=== PATIENT | male | born 1940 | race Caucasian/White ===

== ENCOUNTER → 2016-09-19 | Outpatient (CLI) | payer MEDICARE, BC | LOC: RESP 12:11 | PROVIDERS: ATTEND Family Medicine | DX: Z01.810 Encounter for preprocedural cardiovascular examination (principal) ==

== ENCOUNTER → 2016-11-04 | Outpatient (CLI) | payer MEDICARE, BC | END | disposition home or self-care (01) | LOC: GMAL 14:56 | PROVIDERS: ATTEND Family Medicine | DX: R97.20 Elevated prostate specific antigen [PSA] (principal) ==

== ENCOUNTER → 2017-05-14 | Outpatient (CLI) | payer MEDICARE | END | disposition home or self-care (01) | LOC: GMAL 14:02 | PROVIDERS: ATTEND Family Medicine | DX: D51.3 Other dietary vitamin B12 deficiency anemia (principal); M10.9 Gout, unspecified; E55.9 Vitamin D deficiency, unspecified ==

== ENCOUNTER → 2017-11-12 | Outpatient (CLI) | payer MEDICARE | LOC: GMAL 11:24 | PROVIDERS: ATTEND Family Medicine | DX: D51.3 Other dietary vitamin B12 deficiency anemia (principal); R53.82 Chronic fatigue, unspecified; E55.9 Vitamin D deficiency, unspecified ==

== ENCOUNTER 2018-01-21 05:38 | Day surgery (SDC) | payer MEDICARE ==
[2018-01-21] MEDS ORDERED: PROPOFOL 200 MG/20 ML VIAL IV ONE (05:39)
[2018-01-21] MEDS ORDERED: LIDOCAINE 1% 10 ML VIAL INJ ONE (05:39)
[2018-01-21] MEDS ORDERED: LACTATED RINGERS 1,000 ML ONE (06:33)
[2018-01-21] MEDS ORDERED: fentaNYL CITRATE INJ 50 MCG/ML AMP ONE (09:05)
--- NOTE | 2018-01-21 10:04 | OP ---
DATE OF PROCEDURE: 01/21/18 PREOPERATIVE DIAGNOSIS: 1. Personal history of colonic polyps. 2. High-risk colon surveillance. POSTOPERATIVE DIAGNOSIS: 1. Colonic polyps. 2. Colonic diverticulosis. 3. Internal hemorrhoids. PROCEDURE: 1. Colonoscopy. SURGEON: Basil Barajas MD ANESTHESIA: Monitored anesthesia care. ESTIMATED BLOOD LOSS: Less than 5 mL. COMPLICATIONS: No immediate complications. PROCEDURE: The patient was placed in the left lateral decubitus position. After monitored anesthesia care was achieved, the adult colonoscope was inserted through the anus and into the rectum under direct visualization. The endoscope was advanced to the cecum without difficulty. The cecum was identified by the ileocecal valve and the appendiceal orifice. Photodocumentation of these locations was performed, the patient's bowel preparation was good. The endoscope was then progressively withdrawn and the total colonic lumen evaluated. Retroflexion was performed in the rectum. The endoscope was then withdrawn and the procedure terminated. The patient tolerated the procedure well with no immediate complications. FINDINGS: 1. Sessile, 5-mm polyp was seen in the transverse colon. The polyp was removed with roselyn snare and retrieved for pathology. 2. Mild to moderate sigmoid colon diverticulosis. There was no evidence of inflammation or bleeding. 3. Grade 3 non-bleeding internal hemorrhoids were noted upon retroflexion in the rectum. IMPRESSION: 1. Transverse colon polyp status post polypectomy. 2. Sigmoid colon diverticulosis. 3. Grade 3 internal hemorrhoids. RECOMMENDATIONS: 1. Repeat colonoscopy in five years for polyp surveillance. 2. Increase dietary fiber or start supplementary daily fiber. 3. Followup with primary care provider as previously scheduled. #[id number] [facility]
[2018-01-21 10:30] VITALS: BP 171/92; TEMP 97; O2SAT 97
== END 2018-01-21 10:30 | disposition home or self-care (01) ==
LOC: AMB 05:38
PROVIDERS: ATTEND Internal Medicine Gastroenterology
DX: Z12.11 Encounter for screening for malignant neoplasm of colon (principal); Z86.010 Personal history of colon polyps; K57.30 Diverticulosis of large intestine without perforation or abscess without bleeding; K64.2 Third degree hemorrhoids; K21.9 Gastro-esophageal reflux disease without esophagitis; I10 Essential (primary) hypertension; E78.5 Hyperlipidemia, unspecified; E66.9 Obesity, unspecified; J45.909 Unspecified asthma, uncomplicated; G47.30 Sleep apnea, unspecified; Z68.39 Body mass index [BMI] 39.0-39.9, adult; Z87.891 Personal history of nicotine dependence; Z79.82 Long term (current) use of aspirin; Z79.899 Other long term (current) drug therapy
CPT/HCPCS: 00812; 45385; 88305; J3010; J3490; J7120

== ENCOUNTER → 2018-05-12 | Outpatient (CLI) | payer MEDICARE | LOC: GMAL 11:48 | PROVIDERS: ATTEND Family Medicine | DX: R97.20 Elevated prostate specific antigen [PSA] (principal); E55.9 Vitamin D deficiency, unspecified ==

== ENCOUNTER → 2018-11-11 | Outpatient (CLI) | payer MEDICARE | LOC: GMAL 11:03 | PROVIDERS: ATTEND Family Medicine | DX: E55.9 Vitamin D deficiency, unspecified (principal) ==

== ENCOUNTER 2018-11-30 05:45 | Day surgery (SDC) | payer MEDICARE ==
[2018-11-30] MEDS ORDERED: TROP 1%/CYCLOPEN 1%/PHENYL 2% DROPS ONE (05:58)
[2018-11-30] MEDS ORDERED: PROPARACAINE 0.5% OPHTH SOL 15 ML BTTL ONE (05:58)
[2018-11-30] MEDS ORDERED: MOXIFLOXACIN HCL (OPHTH) 1 DROP DROPS ONE (05:58)
[2018-11-30] MEDS ORDERED: MIDAZOLAM INJ 2 MG/2 ML VIAL ONE (07:22)
[2018-11-30] MEDS ORDERED: PROPARACAINE 0.5% OPHTH SOL 15 ML BTTL LEFT_EYE ONE (08:00)
[2018-11-30] MEDS ORDERED: DEXAMETHASONE 0.1% OPHTH SOL 1 DROP LEFT_EYE ONE ×2 (08:11→08:37)
[2018-11-30] MEDS ORDERED: LIDOCAINE 1% 2 ML VIAL INJ ONE ×2 (08:11→08:26)
[2018-11-30] MEDS ORDERED: MOXIFLOXACIN HCL (OPHTH) 1 DROP DROPS LEFT_EYE ONE ×2 (08:11→08:35)
[2018-11-30] MEDS ORDERED: BRIMONIDINE 0.2% OPHTH DROPS LEFT_EYE ONE ×2 (08:12→08:37)
[2018-11-30] MEDS ORDERED: TOBRAMYCIN SULF 0.3 % OPHT SOL 1 DROP LEFT_EYE ONE ×2 (08:12→08:37)
== END 2018-11-30 09:20 | disposition home or self-care (01) ==
LOC: AMB 05:45
PROVIDERS: ATTEND Ophthalmology
DX: H25.12 Age-related nuclear cataract, left eye (principal); I10 Essential (primary) hypertension; E66.9 Obesity, unspecified; Z79.899 Other long term (current) drug therapy
CPT/HCPCS: 00142; 66984; J2250

== ENCOUNTER 2018-12-14 06:00 | Day surgery (SDC) | payer MEDICARE ==
[~2018-12-14 06:00] MED LIST: MOXIFLOXACIN HCL (OPHTH) 1 DROP DROPS ONE; PROPARACAINE 0.5% OPHTH SOL 15 ML BTTL ONE; TROP 1%/CYCLOPEN 1%/PHENYL 2% DROPS ONE
[2018-12-14] MEDS ORDERED: MIDAZOLAM INJ 2 MG/2 ML VIAL ONE (11:10)
[2018-12-14] MEDS ORDERED: PROPARACAINE 0.5% OPHTH SOL 15 ML BTTL RIGHT_EYE ONE (11:17)
[2018-12-14] MEDS ORDERED: LIDOCAINE 1% 2 ML VIAL INJ ONE (11:30)
[2018-12-14] MEDS ORDERED: MOXIFLOXACIN HCL (OPHTH) 1 DROP DROPS RIGHT_EYE ONE ×2 (11:30→11:38)
[2018-12-14] MEDS ORDERED: DEXAMETHASONE 0.1% OPHTH SOL 1 DROP RIGHT_EYE ONE ×2 (11:30→11:37)
[2018-12-14] MEDS ORDERED: BRIMONIDINE 0.2% OPHTH DROPS RIGHT_EYE ONE ×2 (11:31→11:37)
[2018-12-14] MEDS ORDERED: TOBRAMYCIN SULF 0.3 % OPHT SOL 1 DROP RIGHT_EYE ONE ×2 (11:31→11:37)
== END 2018-12-14 12:15 | disposition home or self-care (01) ==
LOC: AMB 06:00
PROVIDERS: ATTEND Ophthalmology
DX: H25.11 Age-related nuclear cataract, right eye (principal); I10 Essential (primary) hypertension; Z79.899 Other long term (current) drug therapy
CPT/HCPCS: 00142; 66984; J2250

== ENCOUNTER → 2019-04-19 | Outpatient (CLI) | payer MEDICARE ==
--- NOTE | 2019-04-19 14:14 | RAD ---
EXAM DESCRIPTION: Shoulder,Left 2 or More Views CLINICAL HISTORY: PAIN IN LEFT SHOULDER COMPARISON: 06/17/2016. TECHNIQUE: Four views of the left shoulder. FINDINGS: No displaced fracture or dislocation of the left shoulder. The alignment of the acromioclavicular joint is intact. There is mild anterior subluxation of the left humeral head (as seen on the axillary view). No fracture or dislocation. The humeral head is mildly high riding. Moderate left acromioclavicular and glenohumeral joints osteoarthrosis is present with joint space narrowing, subchondral sclerosis, and bulky marginal osteophyte formation. Lateral subacromial enthesophytes are present. IMPRESSION: 1. No acute osseous abnormality. 2. Mild anterior subluxation of the left humeral head. 3. Moderate left acromioclavicular and glenohumeral joint osteoarthrosis. Electronically signed by: Thiago Berrios DO 04/19/2019 2:12 PM CDT
--- NOTE | 2019-04-19 16:56 | MRI ---
EXAM DESCRIPTION: MRI right shoulder CLINICAL HISTORY: Rotator cuff syndrome. Shoulder pain. COMPARISON: None. TECHNIQUE: Multiplanar, multisequence MR images of the right shoulder FINDINGS: Severe osteoarthritis of the acromioclavicular joint. Joint effusion and prominent marginal osteophytes indenting the supraspinatus. Anterior lateral downsloping of the acromion with subacromial enthesophyte and contiguous inferior lateral acromial spur. Subacromial subdeltoid bursal edema with small volume of fluid in the anterior subdeltoid/subcoracoid bursa. Severe supraspinatus tendinosis with structurally significant high-grade partial articular and interstitial chronic tear. Erosive cystic change and surrounding edema along the posterior horizontal facet. Muscle volume mildly decreased with grade 1 fatty infiltration Contiguous infraspinatus tendinosis with partial articular insertional fraying of the tendon. Muscle volume is moderately decreased with grade 2 fatty infiltration Teres minor tendon intact. Normal muscle volume with grade 1 fatty infiltration. Chronic subscapularis tendinosis with tendon thinning of the upper half of the tendon, chronic tear. Muscle volume moderately decreased with grade 2 fatty infiltration Attritional tendinosis of the long head biceps. Markedly thinned tendon in the bicipital groove, complete/near-complete tear, apparently adherent in the bicipital groove. No fluid in the tendon sheath. Blunting of the labral anchor and superior labrum. Degenerative signal in the circumference of the labrum with blunting. No acute labral detachment No full-thickness chondrosis/chronic osteochondral lesion of the glenohumeral joint. Physiologic joint fluid IMPRESSION: Severe acromioclavicular osteoarthritis, anterior lateral downsloping of the acromion and spurring Structurally significant high-grade partial tear of the supraspinatus tendon with associated focal cystic change and edema in the posterior oblique facet greater tuberosity High-grade chronic degenerative thinning of the subscapularis tendon Complete/near-complete long head biceps tendon tear superimposed on attritional tendinosis with tendon adherent in the bicipital groove Electronically signed by: Brett Gandhi MD 04/19/2019 4:54 PM CDT
== END ==
LOC: RAD 09:23
PROVIDERS: ATTEND Orthopaedic Surgery
DX: S46.111A Strain of muscle, fascia and tendon of long head of biceps, right arm, initial encounter (principal); M75.101 Unspecified rotator cuff tear or rupture of right shoulder, not specified as traumatic; S43.012A Anterior subluxation of left humerus, initial encounter; M19.012 Primary osteoarthritis, left shoulder

== ENCOUNTER → 2019-04-28 | Outpatient (CLI) | payer MEDICARE | LOC: GMAL 10:49 | PROVIDERS: ATTEND Family Medicine | DX: R97.20 Elevated prostate specific antigen [PSA] (principal); M10.9 Gout, unspecified; E78.49 Other hyperlipidemia; I10 Essential (primary) hypertension; E11.9 Type 2 diabetes mellitus without complications ==

== ENCOUNTER → 2019-07-05 | Outpatient (CLI) | payer MEDICARE | LOC: GMAL 11:00 | PROVIDERS: ATTEND Family Medicine | DX: M10.9 Gout, unspecified (principal); I10 Essential (primary) hypertension ==

== ENCOUNTER → 2019-08-05 | Outpatient (CLI) | payer MEDICARE ==
--- NOTE | 2019-08-05 11:53 | RAD ---
EXAM DESCRIPTION: Pelvis CLINICAL HISTORY: PAIN IN LEFT HIP COMPARISON: None. TECHNIQUE: AP pelvis FINDINGS: Minimal acetabular osteophyte formation is observed. Degenerative changes are seen in the pubic symphysis and in the lower lumbar spine. Phleboliths are observed in the pelvis. No fracturing is detected. IMPRESSION: Minimal degenerative changes are observed. Electronically signed by: South Zuleta MD 08/05/2019 11:51 AM [facility]
--- NOTE | 2019-08-05 11:54 | RAD ---
EXAM DESCRIPTION: Knee,Left Complete CLINICAL HISTORY: PAIN IN LEFT KNEE COMPARISON: None. TECHNIQUE: 4 views left FINDINGS: Loss of medial and lateral joint space is observed. Its more pronounced medially. Patellofemoral joint arthritis is seen. A small joint effusion is noted. Calcific atherosclerotic changes observed in the popliteal artery. Some fragmentation of the anterior tibial tubercle is observed. IMPRESSION: Tricompartmental joint arthritis is observed most pronounced in the medial joint compartment. A small joint effusion is evident. Electronically signed by: South Zuleta MD 08/05/2019 11:[address] [facility]
== END ==
LOC: RAD 09:59
PROVIDERS: ATTEND Orthopaedic Surgery
DX: M16.12 Unilateral primary osteoarthritis, left hip (principal); M17.12 Unilateral primary osteoarthritis, left knee; M25.462 Effusion, left knee

== ENCOUNTER → 2019-09-09 | Outpatient (CLI) | payer MEDICARE | LOC: LAB.O 09:28 | PROVIDERS: ATTEND Orthopaedic Surgery | DX: Z01.818 Encounter for other preprocedural examination (principal); D51.8 Other vitamin B12 deficiency anemias; R30.0 Dysuria ==

== ENCOUNTER 2019-10-06 06:10 | Inpatient (IN) | payer MEDICARE ==
[~2019-10-06 06:10] MED LIST changes: +LACTATED RINGERS 1,000 ML ONE; -MOXIFLOXACIN HCL (OPHTH) 1 DROP DROPS ONE; -PROPARACAINE 0.5% OPHTH SOL 15 ML BTTL ONE; +SODIUM CHL 0.9% 100ML MINI-BAG 100 ML IVPB ONE; +SODIUM CHLORIDE 0.9% 100ML 100 ML IVPB ONE; +SODIUM CHLORIDE 0.9% 250ML 250 ML ONE; +TRANEXAMIC ACID 1,000 MG/10 ML VIAL ONE; -TROP 1%/CYCLOPEN 1%/PHENYL 2% DROPS ONE; +VANCOMYCIN HCL INJ 1,000 MG VIAL IVPB ONE; +ceFAZolin SODIUM 1 GM VIAL ONE
[2019-10-06] MEDS ORDERED: BUPIVACAINE LIPOSOME 13.3 MG/ML VIAL INJ ONE ×2 (06:14→07:37)
[2019-10-06] MEDS ORDERED: VANCOMYCIN HCL INJ 1,000 MG VIAL IVPB ONE ×4 (06:14→19:13)
[2019-10-06] MEDS ORDERED: BUPIVACAINE 0.5% 30 ML VIAL INJ ONE ×2 (06:14→07:37)
[2019-10-06] MEDS ORDERED: ceFAZolin SODIUM 1 GM VIAL ONE ×3 (06:14→19:13)
[2019-10-06] MEDS ORDERED: KETAMINE HCL 100 MG/ML VIAL ONE (06:23)
[2019-10-06] MEDS ORDERED: HYDROmorphone HCL INJ 2 MG/ML VIAL ONE (06:23)
[2019-10-06] MEDS ORDERED: SCOPOLAMINE PATCH 1.5MG 1 EA TD ONE (06:30)
[2019-10-06] MEDS: TRANEXAMIC ACID 1,000 MG/10 ML VIAL ONE ×2 (06:34→09:30)
[2019-10-06] MEDS ORDERED: MIDAZOLAM INJ 5 MG/5 ML VIAL ONE (06:36)
[2019-10-06] MEDS ORDERED: ACETAMINOPHEN IV 1000MG 100 ML ONE (06:46)
[2019-10-06] MEDS ORDERED: PROPOFOL 200 MG/20 ML VIAL IV ONE (07:00)
[2019-10-06] MEDS ORDERED: DEXAMETHASONE INJ 10 MG/ML VIAL ONE (07:00)
[2019-10-06] MEDS ORDERED: MAGNESIUM SULFATE INJ 1 GM/2 ML VIAL ONE (07:00)
[2019-10-06] MEDS ORDERED: ePHEDrine SULF 50 MG/ML ONE (07:00)
[2019-10-06] MEDS ORDERED: SODIUM CHLORIDE 0.9% 50 ML VIAL ONE (07:00)
[2019-10-06] MEDS ORDERED: EPINEPHrine HCL AMP 1 MG/ML AMP ONE (07:00)
[2019-10-06] MEDS ORDERED: ceFAZolin SODIUM 1 GM VIAL IRRIG ONE (07:37)
[2019-10-06] MEDS ORDERED: ELECTROLYTE-A 1,000 ML IVS ONE (08:37)
[2019-10-06] MEDS ORDERED: MORPHINE SULFATE INJ 10 MG/ML VIAL IV PRN (09:42)
[2019-10-06] MEDS ORDERED: BENZOCAINE-MENTH LOZ (CEPACOL) 1 EA LOZ MT PRN (09:42)
[2019-10-06] MEDS ORDERED: NALOXONE HCL INJ 0.4 MG/ML VIAL IV PRN (09:42)
[2019-10-06] MEDS ORDERED: ACETAMINOPHEN 325 MG TAB PO PRN (09:42)
[2019-10-06] MEDS ORDERED: TEMAZEPAM 15 MG CAP PO PRN (09:42)
[2019-10-06] MEDS ORDERED: ACETAMINOPHEN 500 MG TAB PO PRN (09:42)
[2019-10-06] MEDS ORDERED: MORPHINE SULFATE INJ 10 MG/ML VIAL IM PRN (09:42)
[2019-10-06] MEDS ORDERED: PROMETHAZINE HCL INJ 12.5 MG in SODIUM CHLORIDE 0.9% 50ML 50 ML IVPB PRN (09:42)
[2019-10-06] MEDS ORDERED: SODIUM CHLORIDE 0.9% (FLUSH) 10 ML SYG IV PRN (09:42)
[2019-10-06] MEDS ORDERED: TRANEXAMIC ACID INJ 1,000 MG in SODIUM CHLORIDE 0.9% 100ML 100 ML IVPB ONE (09:42)
[2019-10-06] MEDS ORDERED: PROMETHAZINE HCL INJ 25 MG in SODIUM CHLORIDE 0.9% 50ML 50 ML IVPB PRN (09:42)
[2019-10-06] MEDS ORDERED: ONDANSETRON INJ 4 MG/2 ML VIAL IV PRN (09:42)
[2019-10-06] MEDS ORDERED: ZOLPIDEM TARTRATE 5 MG TAB PO PRN (09:42)
[2019-10-06] MEDS ORDERED: ALUMINUM & MAGNESIUM HYDROXIDE 30 ML UD PO PRN (09:42)
[2019-10-06] MEDS ORDERED: BISACODYL SUPPOSITORY 10 MG PR PRN (09:42)
[2019-10-06] MEDS ORDERED: MAGNESIUM HYDROXIDE 30 ML UD PO PRN (09:42)
[2019-10-06] MEDS ORDERED: traMADol HCL 50 MG TAB PO PRN (09:42)
[2019-10-06] MEDS ORDERED: DEX 5% W/NACL 0.45% 1000ML 1,000 ML IVS PRN (09:42)
[2019-10-06] MEDS ORDERED: MORPHINE PCA 1 MG/ML 100 ML BAG IVPB SCH (10:00)
[2019-10-06] MEDS ORDERED: GABAPENTIN 100 MG CAP PO PRN (10:49)
[2019-10-06] MEDS: IV SET AND CAP CHANGE INJ INJ SCH (10:58)
[2019-10-06] MEDS ORDERED: diphenhydrAMINE HCL 50 MG/ML VIAL IV PRN (10:59)
[2019-10-06] MEDS: diphenhydrAMINE HCL 50 MG/ML VIAL IV PRN (11:16)
[2019-10-06] MEDS ORDERED: SODIUM CHL 0.9% 50ML MIN-BAG+ 50 ML IVPB ONE ×2 (14:47→19:12)
[2019-10-06] MEDS ORDERED: CELECOXIB 100 MG CAP ONE (14:48)
[2019-10-06] MEDS: ceFAZolin SODIUM 2 GM in SODIUM CHL 0.9% 50ML MIN-BAG+ 50 ML IVPB SCH ×2 (15:31→23:53)
[2019-10-06] MEDS ORDERED: SODIUM CHLORIDE 0.9% 250ML 250 ML ONE ×2 (16:24→19:12)
--- NOTE | 2019-10-06 16:37 | RAD ---
EXAM DESCRIPTION: Fluoroscopy Up to 1Hr CLINICAL HISTORY: L TKA COMPARISON: None. TECHNIQUE: Fluoroscopy time is 6 seconds, one spot film. FINDINGS: Exam demonstrates placement of a left total knee arthroplasty. IMPRESSION: Left total knee arthroplasty. Electronically signed by: South Zuleta MD 10/06/2019 4:36 PM [facility]
--- NOTE | 2019-10-06 16:39 | RAD ---
EXAM DESCRIPTION: Knee,Left 1 or 2 Views CLINICAL HISTORY: TKA COMPARISON: 05 August 2019 TECHNIQUE: 2 views left FINDINGS: Exam demonstrates placement of a left total knee arthroplasty. Positioning is near-anatomic. Postoperative air is observed anteriorly. IMPRESSION: New left total knee arthroplasty. Electronically signed by: South Zuleta MD 10/06/2019 4:38 PM [facility]
[2019-10-06] MEDS: CELECOXIB 100 MG CAP PO SCH (16:41)
[2019-10-06] MEDS: VANCOMYCIN HCL INJ 1,000 MG in SODIUM CHLORIDE 0.9% 250ML 250 ML IVPB SCH (16:42)
[2019-10-06] MEDS ORDERED: ENOXAPARIN SODIUM 30 MG/0.3 ML SYG SUBCU ONE (19:13)
[2019-10-06] MEDS: FAMOTIDINE 20 MG TAB PO SCH (20:01)
[2019-10-06] MEDS: ALLOPURINOL 300 MG TAB PO SCH (20:01)
[2019-10-06] MEDS: DOCUSATE CALCIUM 240 MG CAP PO SCH (20:01)
[2019-10-06] MEDS: VALSARTAN 80 MG TAB PO SCH (20:01)
[2019-10-06] MEDS: CARVEDILOL 12.5 MG TAB PO SCH (20:01)
[2019-10-06] MEDS ORDERED: VALSARTAN 80 MG PO SCH (21:00)
[2019-10-06] MEDS ORDERED: NON-FORMULARY MEDICATION 1 EA MIS (Carvedilol [Carvedilol] 6.25 MG) PO SCH (21:00)
[2019-10-06] MEDS: ENOXAPARIN SODIUM 30 MG/0.3 ML SYG SUBCU SCH (22:27)
[2019-10-07] MEDS: VANCOMYCIN HCL INJ 1,000 MG in SODIUM CHLORIDE 0.9% 250ML 250 ML IVPB SCH (05:51)
[2019-10-07] MEDS: CHLORTHALIDONE 25 MG TAB PO SCH (08:20)
[2019-10-07] MEDS: FAMOTIDINE 20 MG TAB PO SCH ×2 (08:20→20:51)
[2019-10-07] MEDS: TOLTERODINE TARTRATE ER 4 MG CAP PO SCH (08:21)
[2019-10-07] MEDS: CARVEDILOL 12.5 MG TAB PO SCH ×2 (08:22→20:50)
[2019-10-07] MEDS: ALLOPURINOL 300 MG TAB PO SCH ×2 (08:22→20:51)
[2019-10-07] MEDS: CELECOXIB 100 MG CAP PO SCH ×2 (08:23→18:02)
[2019-10-07] MEDS: MAGNESIUM OXIDE 400 MG TAB PO SCH (08:25)
[2019-10-07] MEDS ORDERED: ceFAZolin SODIUM 1 GM VIAL ONE (08:26)
[2019-10-07] MEDS ORDERED: SODIUM CHL 0.9% 50ML MIN-BAG+ 50 ML IVPB ONE (08:26)
[2019-10-07] MEDS ORDERED: TOLTERODINE TARTRATE 2 MG PO SCH (09:00)
[2019-10-07] MEDS: ceFAZolin SODIUM 2 GM in SODIUM CHL 0.9% 50ML MIN-BAG+ 50 ML IVPB SCH (10:28)
[2019-10-07] MEDS: ENOXAPARIN SODIUM 30 MG/0.3 ML SYG SUBCU SCH ×2 (11:45→22:47)
[2019-10-07] MEDS: HYDROcodone 5MG/APAP 325MG 1 EA TAB PO PRN ×2 (18:03→22:41)
[2019-10-07] MEDS: diphenhydrAMINE HCL 50 MG/ML VIAL IV PRN ×2 (18:05)
[2019-10-07] MEDS: VALSARTAN 80 MG TAB PO SCH (20:50)
[2019-10-07] MEDS: DOCUSATE CALCIUM 240 MG CAP PO SCH (20:50)
[2019-10-08] MEDS: diphenhydrAMINE HCL 50 MG/ML VIAL IV PRN (01:23)
[2019-10-08] MEDS: HYDROcodone 5MG/APAP 325MG 1 EA TAB PO PRN ×2 (05:34→21:42)
[2019-10-08] MEDS: CHLORTHALIDONE 25 MG TAB PO SCH (07:49)
[2019-10-08] MEDS: TOLTERODINE TARTRATE ER 4 MG CAP PO SCH (07:49)
[2019-10-08] MEDS: CARVEDILOL 12.5 MG TAB PO SCH ×2 (07:49→20:39)
[2019-10-08] MEDS: FAMOTIDINE 20 MG TAB PO SCH ×2 (07:49→20:39)
[2019-10-08] MEDS: MAGNESIUM OXIDE 400 MG TAB PO SCH (07:50)
[2019-10-08] MEDS: CELECOXIB 100 MG CAP PO SCH ×2 (07:50→17:40)
[2019-10-08] MEDS: CYCLOBENZAPRINE HCL 10 MG TAB PO PRN ×2 (07:50→21:42)
[2019-10-08] MEDS: SODIUM CHLORIDE 0.9% (FLUSH) 10 ML SYG IV SCH ×2 (07:52→20:40)
[2019-10-08] MEDS: ALLOPURINOL 300 MG TAB PO SCH ×2 (07:52→20:39)
--- NOTE | 2019-10-08 08:40 | PN ---
DATE: 10/07/19 SUBJECTIVE: Mr. Sam is doing well and has good pain control right now. OBJECTIVE: Afebrile. Vital signs stable. Dressing is clean, dry and intact. ASSESSMENT: Status post total knee arthroplasty. PLAN: At this point, he will continue with his weightbearing as tolerated status. #[id number] [facility]TDD
[2019-10-08] MEDS: diphenhydrAMINE HCL 25 MG CAP PO PRN ×2 (09:02→20:40)
[2019-10-08] MEDS: ENOXAPARIN SODIUM 30 MG/0.3 ML SYG SUBCU SCH ×2 (11:47→23:38)
--- NOTE | 2019-10-08 16:16 | CONS ---
SUPERVISING PHYSICIAN: Tommie Carlson MD DATE OF CONSULTATION: 10/06/19 CHIEF COMPLAINT: Left knee pain. HISTORY OF PRESENT ILLNESS: This is a 79-year-old male patient who has a history of osteoarthritis with knee pain. He has tried conservative measures and has failed to respond to those treatments. He has requested Dr. Daniel Magallanes for surgical consult for left total knee arthroplasty. He was admitted today for surgery. He had no intraoperative complications and is being admitted to the Floor today after surgical procedure. He is in stable condition. PAST MEDICAL HISTORY: 1. Hypertension. 2. Type 2 diabetes mellitus. 3. Gout. 4. Seasonal allergies. 5. Sleep apnea. 6. Benign prostatic hypertrophy. PAST SURGICAL HISTORY: 1. Right eye surgery. OUTPATIENT MEDICATIONS: Per the EMR and awaiting verification. ALLERGIES: ZOLPIDEM. SOCIAL HISTORY: He lives in [place]. He has a past history of cigarette smoking, but he quit in the 70s. He denies any ETOH or illicit drug use. REVIEW OF SYSTEMS: Negative except as per history of present illness. PHYSICAL EXAMINATION: VITAL SIGNS: Temperature 96.8. Heart rate 54. Blood pressure 171/80. Respiratory rate 95% on Venturi mask. Respiratory rate about 16. GENERAL: This is a 79-year-old male patient who is lying in his hospital bed. He is in no acute distress. HEENT: Normocephalic, atraumatic. Pupils are equal and reactive. Oropharynx is clear. NECK: Supple without mass. RESPIRATORY: Essentially clear to auscultation bilaterally. CHEST: There is equal rise and fall of the chest with inspiration and expiration. CARDIOVASCULAR: Regular rate and rhythm. GASTROINTESTINAL: Abdomen is soft, nondistended, nontender. Bowel sounds are hypoactive. EXTREMITIES: Bilateral pedal pulses are palpable at +2. He has a dressing and Jose bandage to his left knee that is dry and intact. NEUROLOGIC: He is somewhat lethargic, but he is oriented times three. Cranial nerves II-XII are grossly intact as tested. LABORATORY: UDS is negative. Films are per history of present illness. IMPRESSION: 1. Osteoarthritis of the left knee status post left total knee arthroplasty, postoperative day #0, surgery performed by Dr. Daniel Magallanes, orthopedic surgeon. 2. Diet controlled diabetes mellitus, type 2. 3. Hypertension. 4. Gout. 5. Sleep apnea. 6. Benign prostatic hypertrophy. PLAN: We will continue present supportive care. Orthopedic issues will be per Dr. Daniel Magallanes, orthopedic surgeon. He will begin physical therapy for strengthening and conditioning tomorrow. We will encourage good pulmonary hygiene. I will restart his home medications as soon as they have been verified. We will continue to monitor the patient closely and follow as needed. #[id number] [facility]TDD
[2019-10-08] MEDS: VALSARTAN 80 MG TAB PO SCH (20:39)
[2019-10-08] MEDS: DOCUSATE CALCIUM 240 MG CAP PO SCH (20:39)
[2019-10-09] MEDS: HYDROcodone 5MG/APAP 325MG 1 EA TAB PO PRN ×3 (05:44→19:49)
[2019-10-09] MEDS: CYCLOBENZAPRINE HCL 10 MG TAB PO PRN (07:40)
[2019-10-09] MEDS: CELECOXIB 100 MG CAP PO SCH ×2 (08:20→17:11)
[2019-10-09] MEDS: TOLTERODINE TARTRATE ER 4 MG CAP PO SCH (08:20)
[2019-10-09] MEDS: CHLORTHALIDONE 25 MG TAB PO SCH (08:20)
[2019-10-09] MEDS: diphenhydrAMINE HCL 25 MG CAP PO PRN ×2 (08:21→17:11)
[2019-10-09] MEDS: ALLOPURINOL 300 MG TAB PO SCH ×2 (08:21→21:09)
[2019-10-09] MEDS: FAMOTIDINE 20 MG TAB PO SCH ×2 (08:21→21:08)
[2019-10-09] MEDS: CARVEDILOL 12.5 MG TAB PO SCH ×2 (08:22→21:06)
[2019-10-09] MEDS: SODIUM CHLORIDE 0.9% (FLUSH) 10 ML SYG IV SCH ×2 (08:22→21:09)
[2019-10-09] MEDS: MAGNESIUM OXIDE 400 MG TAB PO SCH (08:22)
--- NOTE | 2019-10-09 09:45 | PN ---
SUPERVISING PHYSICIAN: Tommie Carlson MD DATE: 10/08/19 SUBJECTIVE: The patient has no complaints of shortness of breath, nausea or vomiting, no chest pain. He did say he had a little difficult time with his physical therapy. It was difficult for him to get out of bed. He did not have difficulty walking down the hallways but it was from a seated position to a standing position. Otherwise, he feels like he is progressing well. OBJECTIVE: VITAL SIGNS: Temperature 97.7, heart rate 98, blood pressure 127/72, respiratory rate 18, oxygen saturation 94%. RESPIRATORY: Essentially clear to auscultation bilaterally. CARDIAC: Regular rate and rhythm. ABDOMEN: Soft, nondistended, non-tender. Bowel sounds are positive. EXTREMITIES: He has a dressing to his left knee that is dry and intact. NEURO: He is awake, alert, and oriented x3. LABORATORY: Hemoglobin 13, hematocrit 38.6. All other labs and films have been reviewed via the EMR. IMPRESSION: 1. Osteoarthritis of the left knee status post left total knee arthroplasty, postoperative day #1, surgery performed by Dr. Daniel Magallanes, orthopedic surgeon. 2. Diet controlled diabetes mellitus, type 2. 3. Hypertension. 4. Gout. 5. Sleep apnea. 6. Benign prostatic hypertrophy. PLAN: We will continue present supportive care. Orthopedic issues will be per Dr. Daniel Magallanes, orthopedic surgeon. He will continue his physical therapy for strengthening and conditioning. I have encouraged good pulmonary hygiene and we will continue to monitor patient closely and follow as needed. #[id number] [facility]TDD
--- NOTE | 2019-10-09 10:10 | PN ---
SUPERVISING PHYSICIAN: Tommie Carlson MD DATE: 10/08/19 SUBJECTIVE: The patient is sitting up on the side of his bed eating. He has no complaints of shortness of breath, chest pain, nausea or vomiting. He continues to have some issues with getting up out of bed and once he gets up to an upright position, he does well, but it is going from a sitting position to a standing position that he feels somewhat weak. Physical therapy recommended he have a few more days in the hospital. OBJECTIVE: VITAL SIGNS: Temperature 97.4. Heart rate 89. Blood pressure 134/76. Respiratory rate 18. O2 saturation 94% on room air. RESPIRATORY: Essentially clear to auscultation bilaterally. CARDIAC: Regular rate and rhythm. GASTROINTESTINAL: Abdomen is soft, nondistended, nontender. Bowel sounds are positive. EXTREMITIES: His left knee has a dressing that is dry and intact. His bilateral pedal pulses are palpable at +2. NEUROLOGIC: Awake, alert and oriented times three. LABORATORY: There are no labs or films to report at this time. ASSESSMENT: 1. Osteoarthritis of the left knee status post left total knee arthroplasty, surgery performed by Dr. Daniel Magallanes, orthopedic surgeon, postoperative day #2. 2. Diet controlled diabetes mellitus, type 2. 3. Hypertension. 4. Gout. 5. Sleep apnea. 6. Benign prostatic hypertrophy. PLAN: We will continue present supportive care. Orthopedic issues will be per Dr. Daniel Magallanes, orthopedic surgeon. Physical therapy will continue for strengthening and conditioning. We hope to discharge tomorrow or the next day if he continues to improve with his physical therapy. We encouraged good pulmonary hygiene. We will continue to monitor the patient closely and follow as needed. #[id number] [facility]
[2019-10-09] MEDS: ENOXAPARIN SODIUM 30 MG/0.3 ML SYG SUBCU SCH ×2 (11:00→22:35)
[2019-10-09] MEDS ORDERED: SULFA/TRIMETH 800/160 (DS) TAB 1 EA TAB PO SCH (13:00)
[2019-10-09] MEDS: IV SET AND CAP CHANGE INJ INJ SCH (18:00)
--- NOTE | 2019-10-09 20:16 | PN ---
SUPERVISING PHYSICIAN: Tommie Carlson MD DATE: 10/09/19 SUBJECTIVE: Early this morning I got a report that the patient was having some hypertension issues and was complaining he could not pee. He would get up to the beside commode but only pee small amounts. We went ahead and placed a Gaming catheter, he had well over 1300 cc or more at time of placement. Discussed with the patient that Gaming would remain in place until we can get a urology consultation or if he is able to bladder train and concerns that we might be able to remove it, we would do so but he has had problems in the past with benign prostatic hypertrophy. He does remain afebrile. Urine on exam was clean. OBJECTIVE: VITAL SIGNS: Temperature 97.6. Heart rate 69. Blood pressure 141/69. Respiratory rate 18. O2 saturation 95% on 2 liter nasal cannula. I&O: negative balance of 1675 with Gaming amount at 1325. He has had one bowel movement. Weight 124 kg. GENERAL: Patient is resting comfortably, appears to be in no distress. He is alert and oriented x3. CHEST: Clear to auscultation. CARDIAC: Regular rate and rhythm. GASTROINTESTINAL: Abdomen is soft, nondistended. Bowel sounds are positive. EXTREMITIES: His left knee has a dressing that is clean and dry with pulses distally,, capillary refill brisk. NEUROLOGIC: Intact with no deficits noted. He is alert and oriented x3. LABORATORY: Urinalysis after Gaming catheter placement, 15 of ketones, just tract intact blood. Otherwise, within normal limits.. ASSESSMENT: 1. Osteoarthritis of the left knee status post left total knee arthroplasty, surgery performed by Dr. Daniel Magallanes, orthopedic surgeon, postoperative day #3. 2. Benign prostatic hypertrophy with postoperative urinary retention requiring Gaming placement. 3. Diet controlled diabetes mellitus, type 2. 4. Hypertension. 5. Gout. 6. Sleep apnea.. PLAN: We will continue to follow patient as he progresses through his physical therapy and reconditioning efforts. We will leave his Gaming in place. I anticipate he will probably discharge on Friday. Will probably need to discuss with urology if we need to go ahead and try to do another Gaming removal to see if he can void without gong home with a Gaming. Until then, we will continue to monitor and treat as needed. [facility][id number]
[2019-10-09] MEDS ORDERED: BISACODYL SUPPOSITORY 10 MG PR ONE (21:00)
[2019-10-09] MEDS ORDERED: MAGNESIUM HYDROXIDE 30 ML UD PO ONE (21:00)
[2019-10-09] MEDS: SULFA/TRIMETH 800/160 (DS) TAB 1 EA TAB PO SCH (21:06)
[2019-10-09] MEDS: VALSARTAN 80 MG TAB PO SCH (21:07)
[2019-10-09] MEDS: DOCUSATE CALCIUM 240 MG CAP PO SCH (21:09)
[2019-10-10] MEDS: CELECOXIB 100 MG CAP PO SCH ×2 (09:32→18:06)
[2019-10-10] MEDS: CHLORTHALIDONE 25 MG TAB PO SCH (09:32)
[2019-10-10] MEDS: SULFA/TRIMETH 800/160 (DS) TAB 1 EA TAB PO SCH ×2 (09:33→20:18)
[2019-10-10] MEDS: ALLOPURINOL 300 MG TAB PO SCH ×2 (09:33→20:18)
[2019-10-10] MEDS: CARVEDILOL 12.5 MG TAB PO SCH ×2 (09:33→20:18)
[2019-10-10] MEDS: FAMOTIDINE 20 MG TAB PO SCH ×2 (09:33→20:18)
[2019-10-10] MEDS: MAGNESIUM OXIDE 400 MG TAB PO SCH (09:34)
[2019-10-10] MEDS: SODIUM CHLORIDE 0.9% (FLUSH) 10 ML SYG IV SCH ×2 (09:34→20:18)
[2019-10-10] MEDS: HYDROcodone 5MG/APAP 325MG 1 EA TAB PO PRN ×2 (11:55→16:51)
[2019-10-10] MEDS: TOLTERODINE TARTRATE ER 4 MG CAP PO SCH (13:39)
[2019-10-10] MEDS: ENOXAPARIN SODIUM 30 MG/0.3 ML SYG SUBCU SCH ×2 (13:41→22:07)
--- NOTE | 2019-10-10 18:42 | PN ---
SUPERVISING PHYSICIAN: Tommie Carlson MD DATE: 10/10/19 SUBJECTIVE: The patient continues to do well. He tolerated the Gaming for the urinary retention that was noted on Friday morning. I did discuss with him that we will work to do some bladder today with anticipation of removing the Gaming tomorrow and do a pre and post void ultrasound study to insure that he does not continue to have urinary retention requiring Gaming placement. He has had no further complaints. His pain is under control. OBJECTIVE: VITAL SIGNS: Temperature 98.2. Heart rate 78. Blood pressure 130/69. Respiratory rate 18. O2 saturation 97% on 2 liter nasal cannula. GENERAL: Patient is resting comfortably, appears to be in no distress. He is alert and oriented x3. CHEST: Clear to auscultation. CARDIAC: Regular rate and rhythm. GASTROINTESTINAL: Abdomen is soft, nondistended. Bowel sounds are positive. EXTREMITIES: His left knee has a dressing that is clean and dry with pulses distally,, capillary refill brisk. NEUROLOGIC: Intact with no deficits noted. He is alert and oriented x3. LABORATORY: No additional laboratory studies today. ASSESSMENT: 1. Osteoarthritis of the left knee status post left total knee arthroplasty, surgery performed by Dr. Daniel Magallanes, orthopedic surgeon, postoperative day #4. 2. Benign prostatic hypertrophy with postoperative urinary retention requiring Gaming placement. 3. Diet controlled diabetes mellitus, type 2. 4. Hypertension. 5. Gout. 6. Sleep apnea.. PLAN: We will continue with physical therapy efforts and monitor patient closely. Discussed with him that we need to train his bladder today in anticipation of discontinuing the Gaming in the morning. I will order a pre and post void to be sure that he is not retaining. He would certainly benefit from a consultation with either Dr. Shrestha or Dr. Melo and I believe he has seen Dr. Shrestha in the past. It is anticipated he will discharge on Friday morning to continue with physical therapy efforts. Until then, we will continue to monitor and treat as needed. [id number]
[2019-10-10] MEDS: DOCUSATE CALCIUM 240 MG CAP PO SCH (20:18)
[2019-10-10] MEDS: VALSARTAN 80 MG TAB PO SCH (20:18)
[2019-10-11] MEDS: CELECOXIB 100 MG CAP PO SCH (07:30)
[2019-10-11] MEDS: FAMOTIDINE 20 MG TAB PO SCH (08:04)
[2019-10-11] MEDS: ALLOPURINOL 300 MG TAB PO SCH (08:04)
[2019-10-11] MEDS: HYDROcodone 5MG/APAP 325MG 1 EA TAB PO PRN (08:04)
[2019-10-11] MEDS: CHLORTHALIDONE 25 MG TAB PO SCH (08:04)
[2019-10-11] MEDS: MAGNESIUM OXIDE 400 MG TAB PO SCH (08:04)
[2019-10-11] MEDS: SULFA/TRIMETH 800/160 (DS) TAB 1 EA TAB PO SCH (08:04)
[2019-10-11] MEDS: CARVEDILOL 12.5 MG TAB PO SCH (08:05)
[2019-10-11] MEDS: SODIUM CHLORIDE 0.9% (FLUSH) 10 ML SYG IV SCH (08:12)
[2019-10-11] MEDS: diphenhydrAMINE HCL 25 MG CAP PO PRN (09:13)
[2019-10-11 11:14] VITALS: O2SAT 95
[2019-10-11] MEDS: ENOXAPARIN SODIUM 30 MG/0.3 ML SYG SUBCU SCH (11:34)
--- NOTE | 2019-10-11 13:20 | PN ---
DATE: 10/09/19 SUBJECTIVE: Mr. Sam is improving and his pain is well controlled today. OBJECTIVE: Afebrile. Vital signs stable. The wound is clean. There are no signs or symptoms of infection. ASSESSMENT: Status post total knee arthroplasty. PLAN: The plan at this point is to continue with physical therapy. [id number] [facility]
--- NOTE | 2019-10-11 13:21 | PN ---
DATE: 10/11/19 SUBJECTIVE: Mr. Sam is much improved and has been out of bed without assistance. OBJECTIVE: Afebrile. Vital signs stable. The wound is clean. There are no signs or symptoms of infection. ASSESSMENT: Status post total knee arthroplasty. PLAN: The plan at this point is to continue with therapy. He will be discharged to [facility] today. #[id number] [facility]TDD
[2019-10-11 15:03] VITALS: BP 142/84; TEMP 98.7
--- NOTE | 2019-10-12 08:21 | DS ---
SUPERVISING PHYSICIAN: Mayi Willoughby MD ADMISSION DIAGNOSIS: 1. Left knee osteoarthritis status post left total knee arthroplasty. 2. Diabetes mellitus, type 2. 3. Hypertension. 4. Gout. 5. Sleep apnea. 6. Benign prostatic hypertrophy. DISCHARGE DIAGNOSIS: 1. Left knee osteoarthritis status post left total knee arthroplasty. 2. Diabetes mellitus, type 2. 3. Hypertension. 4. Gout. 5. Sleep apnea. 6. Benign prostatic hypertrophy. 7. Urinary retention. HOSPITAL COURSE: This is a 79-year-old male patient who had chronic left knee osteoarthritis that failed conservative measures and therefore underwent an elective left total knee arthroplasty performed by Dr. Magallanes. There were no intraoperative complications. The patient came to the Medical/Surgical Floor the day of surgery in stable condition. The patient participated in physical therapy throughout his stay in addition to the fact that he had pain control. He was also on prophylactic anticoagulation with Lovenox 30 mg subcutaneously b.i.d. The patient did have some urinary retention which started on 10/09/19. The patient had a Gaming catheter placed. Urinalysis was not indicative of urinary tract infection. However, by the day of discharge, the patient had his Gaming catheter discontinued and he was able to void. Pain was controlled and he chose to go to [facility] for further rehabilitation. Therefore, he was discharged today in stable condition. Physical therapy will be continued at [facility]. Medications will include his anticoagulation with Xarelto 10 mg daily for 7 more days to complete a 12-day anticoagulation regimen. He will followup with Dr. Magallanes in 1 to 2 weeks. [facility][id number] [facility]
--- NOTE | 2019-10-14 08:34 | OP ---
DATE OF PROCEDURE: 10/06/19 PREOPERATIVE DIAGNOSIS: 1. Osteoarthritis of the left knee. POSTOPERATIVE DIAGNOSIS: 1. Osteoarthritis of the left knee. PROCEDURE: 1. Left total knee arthroplasty. SURGEON: Daniel Magallanes MD. CAMP DINING ROOM ATTENDANT: Navi Youssef CST, SA-C. ANESTHESIA: General anesthesia. COMPLICATIONS: None. FINDINGS: Severe arthritis of the knee. INDICATION: Mr. Sam has a long history of severe knee pain. Unfortunately, he has been unable to get relief with any conservative measures. Because of his ongoing pain and dysfunction, he has requested operative intervention. After discussing the risks, benefits and alternatives to operative intervention, informed consent was obtained for that. PROCEDURE: The patient was brought to the Operating Room and placed in supine position. General anesthesia was induced and the patient's leg was sterilely prepped and draped. Following prepping and draping, the distal femur was exposed and using an intramedullary guide, the distal femoral cut was made. The appropriate sized cutting block was measured, pinned into place, and the anterior, posterior, and chamfer cuts were made. The ACL was transected and the tibia was subluxed. Both the medial and lateral menisci were removed. An intramedullary guide was used to make the proximal tibial cut. The appropriate sized base plate was placed and a trial polyethylene was placed. The trial femur was placed, the knee was reduced, and the knee was taken through a range of motion. The knee was stable in anterior, posterior, varus and valgus stress. The patella tracked anatomically without evidence of subluxation or dislocation. After trialing, the trial components were removed and the bony surfaces were thoroughly irrigated with saline. Following irrigation, the surfaces were dried and the final components were cemented into place. The excess cement was removed and the remaining cement was allowed to cure. The knee was again taken through a range of motion to confirm stability. The wound was then irrigated with saline and closure was performed using PDS to approximate the arthrotomy followed by closure of the subcutaneous tissues with a combination of running and interrupted Monocryl sutures. Sterile dressing was placed. The patient was awoken from anesthesia and taken to Recovery. COMPONENTS: Erick Triathlon knee, size 5 femur, size 5 tibia, 9 mm insert. POSTOPERATIVE PLAN: The patient will be weight-bearing as tolerated on postoperative day 1. #[id number] [facility]
== END 2019-10-11 15:40 | DRG 470 ==
LOC: AMB 06:10 → MS 10:40
PROVIDERS: ADMIT Orthopaedic Surgery; ATTEND Orthopaedic Surgery
PROC: 3E0T3BZ Introduction of Anesthetic Agent into Peripheral Nerves and Plexi, Percutaneous Approach (ICD-10-PCS; 2019-10-06)
PROC: 3E0T33Z Introduction of Anti-inflammatory into Peripheral Nerves and Plexi, Percutaneous Approach (ICD-10-PCS; 2019-10-06)
PROC: 0SRD0J9 Replacement of Left Knee Joint with Synthetic Substitute, Cemented, Open Approach (ICD-10-PCS; principal; 2019-10-06 07:00)
DX: M17.12 Unilateral primary osteoarthritis, left knee (principal); R33.9 Retention of urine, unspecified; I10 Essential (primary) hypertension; E11.9 Type 2 diabetes mellitus without complications; M10.9 Gout, unspecified; J30.2 Other seasonal allergic rhinitis; G47.30 Sleep apnea, unspecified; N40.0 Benign prostatic hyperplasia without lower urinary tract symptoms; J45.909 Unspecified asthma, uncomplicated; Z66 Do not resuscitate; Z88.8 Allergy status to other drugs, medicaments and biological substances; Z87.891 Personal history of nicotine dependence; Z79.52 Long term (current) use of systemic steroids; Z79.891 Long term (current) use of opiate analgesic; Z79.899 Other long term (current) drug therapy

== ENCOUNTER → 2019-12-29 | Outpatient (CLI) | payer MEDICARE | LOC: GMAL 10:57 | PROVIDERS: ATTEND Family Medicine | DX: D51.3 Other dietary vitamin B12 deficiency anemia (principal); M10.9 Gout, unspecified; E55.9 Vitamin D deficiency, unspecified; I10 Essential (primary) hypertension; E78.49 Other hyperlipidemia ==

== ENCOUNTER → 2020-01-06 | Outpatient (CLI) | payer MEDICARE | LOC: GMAL 11:54 | PROVIDERS: ATTEND Family Medicine | DX: R97.20 Elevated prostate specific antigen [PSA] (principal) ==

== ENCOUNTER 2020-02-07 05:34 | Day surgery (SDC) | payer MEDICARE ==
[2020-02-07] MEDS ORDERED: MOXIFLOXACIN HCL (OPHTH) 1 DROP DROPS ONE ×2 (06:32→07:14)
[2020-02-07] MEDS ORDERED: PROPARACAINE 0.5% OPHTH SOL 15 ML BTTL ONE ×2 (06:33→07:14)
[2020-02-07] MEDS ORDERED: TROP1%/CYCLOPEN 1%/PHENYL 2.5% DROPS ONE ×2 (06:33→07:15)
[2020-02-07] MEDS ORDERED: PROPARACAINE 0.5% OPHTH SOL 15 ML BTTL LEFT_EYE ONE (07:57)
== END 2020-02-07 08:10 | disposition home or self-care (01) ==
LOC: AMB 05:34
PROVIDERS: ATTEND Ophthalmology
DX: H26.492 Other secondary cataract, left eye (principal)

== ENCOUNTER 2020-02-21 05:37 | Day surgery (SDC) | payer MEDICARE ==
[2020-02-21] MEDS ORDERED: PROPARACAINE 0.5% OPHTH SOL 15 ML BTTL ONE (06:30)
[2020-02-21] MEDS ORDERED: MOXIFLOXACIN HCL (OPHTH) 1 DROP DROPS ONE (06:30)
[2020-02-21] MEDS ORDERED: TROP1%/CYCLOPEN 1%/PHENYL 2.5% DROPS ONE (06:30)
== END 2020-02-21 08:23 | disposition home or self-care (01) ==
LOC: AMB 05:37
PROVIDERS: ATTEND Ophthalmology
DX: H26.40 Unspecified secondary cataract (principal)

== ENCOUNTER → 2020-04-25 | Outpatient (CLI) | payer MEDICARE | LOC: GMAL 14:57 | PROVIDERS: ATTEND Family Medicine | DX: M10.9 Gout, unspecified (principal) ==

== ENCOUNTER → 2020-04-27 | Outpatient (CLI) | payer MEDICARE ==
--- NOTE | 2020-04-28 08:00 | MRI ---
Study: MRI of the Left Ankle. Indication: PAIN Technique: Multiplanar, multi sequence MRI of the left ankle was obtained without intravenous contrast. Comparison: None Findings: Extensive subcutaneous edema about the ankle. Prominent plantar calcaneal heel spur without acute rupture of the plantar fascia. Low-grade tendinosis critical zone Achilles tendon without tear. No acute fracture or talar coalition. Mild pes planus. Scattered mild to moderate osteoarthritis throughout the midfoot and at the subtalar joint. Remote avulsion injury anterior calcaneal process. Small tibiotalar and talonavicular joint effusions. 2 cm benign lipoma central talus. Valgus angulation of the hindfoot. Patchy grade 4 chondrosis, cortical remodeling, and subchondral marrow change lateral margin of the talar dome with less pronounced grade 3 and mild grade 4 changes of the superolateral margins of the tibial plafond. Prior high-grade tearing anterior talofibular ligament as well as prior sprains of the anterior talofibular ligament, calcaneofibular ligament, deep/superficial deltoid ligament, and spring ligament. Narrowing of the calcaneofibular distance which can predispose to lateral hindfoot impingement. Tenosynovitis and tendinosis of the peroneal tendons noted at this site with focal longitudinal split tearing of the peroneus brevis tendon. No rupture. Mild varus angulation of the midfoot. Tenosynovitis medial tendons without tear. Anterior tendons intact. Impression: Prior high-grade tear anterior talofibular ligament as well as multiple prior medial and lateral ankle ligament sprains. 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 Valgus angulation of the hindfoot with findings which can be seen with lateral hindfoot impingement. Tendinosis of the peroneal tendons with mild longitudinal fissuring of the peroneus brevis tendon. No rupture. Multifocal grade 3-4 chondrosis of the central and lateral margins of the tibiotalar joint. Additional findings as above. Electronically signed by: Gordon Lewis MD 04/28/2020 7:59 AM CDT
== END ==
LOC: MRI 11:08
PROVIDERS: ATTEND Family Medicine
DX: S93.492A Sprain of other ligament of left ankle, initial encounter (principal); M76.72 Peroneal tendinitis, left leg; M19.072 Primary osteoarthritis, left ankle and foot; D17.79 Benign lipomatous neoplasm of other sites; M21.072 Valgus deformity, not elsewhere classified, left ankle; M94.272 Chondromalacia, left ankle and joints of left foot; M77.32 Calcaneal spur, left foot; M25.472 Effusion, left ankle

== ENCOUNTER 2020-07-07 14:18 | Emergency (ER) | payer MEDICARE ==
--- NOTE | 2020-07-07 17:58 | ED.PDOC ---
History of Present Illness - General Chief Complaint: Problem Stated Complaint: anuria Time Seen by Provider: 07/07/20 15:51 Additional Information: Patient is an 80-year-old male who presents to the ED with chief complaint of urinary retention. Patient has a history of prostatic hypertrophy and is on Flomax. He indicates that for the past 1 to 2 days his flow has greatly reduced and he feels like he needs to void but is unable to. He has not voided since midnight last night according to patient. Patient denies abdominal pain, shortness of breath, chest pain, fever, chills, nausea, vomiting. Patient is otherwise asymptomatic. Patient has had an episode in the past where he is required urinary catheterization. Patient has no other complaints today. - History of Present Illness Allergies/Adverse Reactions: Allergies Zolpidem [From Ambien] Adverse Reaction (Verified 07/07/20 15:48) Home Medications: Ambulatory Orders Allopurinol [Zyloprim] 300 mg PO BID 01/20/18 Carvedilol 6.25 mg PO BID 01/20/18 Chlorthalidone 25 mg PO DAILY 01/20/18 Fluticasone Furoate [Flonase Sensimist] 27.5 mcg NA PRN PRN 10/01/19 Gabapentin [Neurontin] 100 mg PO PRN PRN 10/01/19 Atorvastatin Calcium [Lipitor] 10 mg PO DAILY 02/07/20 Meloxicam [Mobic] 15 mg PO DAILY 02/07/20 Review of Systems - Review of Systems Constitutional: States: no symptoms reported. Denies: chills, fever Respiratory: States: no symptoms reported. Denies: cough, short of breath Cardiology: States: no symptoms reported. Denies: chest pain, palpitations Gastrointestinal/Abdominal: States: no symptoms reported. Denies: abdominal pain, nausea, vomiting Genitourinary: States: see HPI. Denies: dysuria, pain All other Systems: Reviewed and Negative Past Medical History (General) - Patient Medical History Hx Seizures: No Hx Stroke: No Hx Dementia: No Hx Asthma: No Hx of COPD: No Hx Cardiac Disorders: No Hx Congestive Heart Failure: No Hx Pacemaker: No Hx Hypertension: Yes Hx Thyroid Disease: No Hx Diabetes: No Hx Gastroesophageal Reflux: No Hx Renal Disease: No Hx of HIV: No Hx MRSA: Yes MRSA Source:: nose swab Surgical History: no surgical history - Vaccination History Hx Influenza Vaccination: Yes - Social History Hx Tobacco Use: Yes Hx Alcohol Use: No Hx Substance Use: No Hx Physical Abuse: No Hx Emotional Abuse: No Family Medical History - Family History Mother Family History: Unknown Physical Exam - Physical Exam General Appearance: Alert, Comfortable, No apparent distress, Well Developed, Well Nourished Cardiovascular/Respiratory: regular rate, rhythm, no M/R/G, normal peripheral pulses, no JVD, normal breath sounds, no respiratory distress Gastrointestinal/Abdominal: normal bowel sounds, non tender, soft, other - Positive bladder fullness with mild suprapubic tenderness to palpation. 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 His UA is negative for infection and his symptoms are almost certainly due to BPH. Will discharge patient home with a leg bag and he will continue with his Flomax and follow-up with his urologist as discussed. Vital signs stable, patient is NAD and looks clinically well and I believe is safe for discharge with outpatient follow-up. Follow-up instructions, discharge instructions and return to ED precautions discussed with patient. Patient voices understanding and willingness to comply with instructions. All laboratory results have been discussed with the patient, and all questions answered. Patient is happy with plan. - EKG/XRAY/CT CT Ordered: No Departure - Departure Clinical Impression: Retention of urine Time of Disposition: 18:02 Disposition: Discharge to Home or Self Care Departure Forms: ED Discharge - Pt. Copy, Patient Portal Self Enrollment Referrals: [place] III, MD [Primary Care Provider] - 1-5 Days Home Medications: Ambulatory Orders Allopurinol [Zyloprim] 300 mg PO BID 01/20/18 Carvedilol 6.25 mg PO BID 01/20/18 Chlorthalidone 25 mg PO DAILY 01/20/18 Fluticasone Furoate [Flonase Sensimist] 27.5 mcg NA PRN PRN 10/01/19 Gabapentin [Neurontin] 100 mg PO PRN PRN 10/01/19 Atorvastatin Calcium [Lipitor] 10 mg PO DAILY 02/07/20 Meloxicam [Mobic] 15 mg PO DAILY 02/07/20 Comments: Continue with your Flomax as previously prescribed. Call your urologist on Friday to make an appointment for follow-up later on in the week. Return to the ED if your urinary catheter becomes obstructed and fails to drain.
[2020-07-07 18:23] VITALS: BP 136/67; TEMP 97.7; O2SAT 94
== END 2020-07-07 18:31 | disposition home or self-care (01) ==
LOC: ER 14:18
DX: N40.1 Benign prostatic hyperplasia with lower urinary tract symptoms (principal); R33.8 Other retention of urine; I10 Essential (primary) hypertension; Z87.891 Personal history of nicotine dependence; Z79.899 Other long term (current) drug therapy; Z88.8 Allergy status to other drugs, medicaments and biological substances

== ENCOUNTER 2020-07-10 09:51 | Emergency (ER) | payer MEDICARE ==
--- NOTE | 2020-07-10 11:28 | ED.PDOC ---
History of Present Illness - General Time Seen by Provider: 07/10/20 10:41 Source: patient, RN notes reviewed, Vital Signs reviewed Exam Limitations: no limitations - History of Present Illness Initial Comments: Patient is an 80-year-old white male who presents with complaints of urethral pain, penile discharge and foul-smelling urine. Patient had a Gaming catheter placed approximately 4 days ago and noted the urethral discharge and foul- smelling urine last night. Patient denies any fever or chills. The urethral pain is burning in nature. It is moderate in intensity. Nothing makes it worse or better. It is nonradiating. Timing/Duration: getting worse, other - 3 to 4 days ago. Quality: moderate, burning Onset Location: urethral Radiation: none Activites at Onset: none Prior abdominal problems: none Sexual intercourse history: not active Improving Factors: nothing Worsening Factors: nothing Associated Symptoms: other - Urethral foul-smelling urine. Urethral discharge. Allergies/Adverse Reactions: Allergies Zolpidem [From Ambien] Adverse Reaction (Verified 07/07/20 15:48) Home Medications: Ambulatory Orders Allopurinol [Zyloprim] 300 mg PO BID 01/20/18 Carvedilol 6.25 mg PO BID 01/20/18 Chlorthalidone 25 mg PO DAILY 01/20/18 Fluticasone Furoate [Flonase Sensimist] 27.5 mcg NA PRN PRN 10/01/19 Gabapentin [Neurontin] 100 mg PO PRN PRN 10/01/19 Atorvastatin Calcium [Lipitor] 10 mg PO DAILY 02/07/20 Meloxicam [Mobic] 15 mg PO DAILY 02/07/20 Cefdinir 300 mg PO BID #14 capsule 07/10/20 Review of Systems - Review of Systems Constitutional: States: no symptoms reported, see HPI. Denies: chills, fever, malaise, weakness EENTM: States: no symptoms reported. Denies: eye pain, blurred vision, double vision Respiratory: States: no symptoms reported. Denies: cough, short of breath, stridor, wheezing Cardiology: States: no symptoms reported. Denies: chest pain, palpitations, syncope Gastrointestinal/Abdominal: States: no symptoms reported. Denies: abdominal pain, nausea, vomiting Genitourinary: States: see HPI, discharge, dysuria, pain - Urethral. Denies: frequency, hematuria Musculoskeletal: States: no symptoms reported. Denies: back pain, joint pain, neck pain Skin: States: no symptoms reported. Denies: change in color, rash Neurological: States: no symptoms reported. Denies: tingling, tremors, weakness Endocrine: States: no symptoms reported. Denies: increased hunger, increased thirst, increased urine Hematologic/Lymphatic: States: no symptoms reported. Denies: blood clots, easy bleeding All other Systems: Reviewed and Negative, No Change from Baseline Past Medical History (General) - Patient Medical History Hx Seizures: No Hx Stroke: No Hx Dementia: No Hx Asthma: No Hx of COPD: No Hx Cardiac Disorders: No Hx Congestive Heart Failure: No Hx Pacemaker: No Hx Hypertension: Yes Hx Thyroid Disease: No Hx Diabetes: No Hx Gastroesophageal Reflux: Yes Hx Renal Disease: No Hx Cancer: Yes - skin Hx of HIV: No Hx MRSA: Yes MRSA Source:: nose swab Surgical History: other - Vaccination History Hx Tetanus, Diphtheria Vaccination: Yes Hx Influenza Vaccination: Yes Hx Pneumococcal Vaccination: No - Social History Hx Tobacco Use: No Hx Alcohol Use: No Hx Substance Use: No Hx Physical Abuse: No Hx Emotional Abuse: No - Activities of Daily Living Hospice Agency (if applicable):: None - Female History Patient is a Female of Child Bearing Age (10 -59 yrs old): No Family Medical History - Family History Mother Family History: Unknown Physical Exam - Physical Exam General Appearance: Alert, Anxious, Obvious distress, Obese, Well Developed, Well Groomed, Well Hydrated, Well Nourished Eyes, Ears, Nose, Throat Exam: PERRL/EOMI, normal ENT inspection, pharynx normal Neck: non-tender, full range of motion, supple Cardiovascular/Respiratory: regular rate, rhythm, no M/R/G, normal peripheral pulses, no JVD, normal breath sounds, no respiratory distress Gastrointestinal/Abdominal: normal bowel sounds, non tender, soft, no organomegaly, no pulsatile mass Rectal Exam: deferred Male Genital Exam: urethral discharge, other - Gaming catheter in place. 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 07/10/20 11:46 Gaming catheter replaced without difficulty. Good urine flow with no Gaming in place. Urinalysis shows infection. Unlikely to be sexually transmitted. Plan on discharge home with a prescription for antibiotics. I discussed this plan of care with the patient and he voices understanding and agreement with plan of care. Patient to follow-up with his PCP in 4 days for Gaming removal. Fidel Miguel M.D. #[id number] - Results/Orders Results/Orders: Laboratory Results - last 24 hr 07/10/20 11:00 Urine Color Yellow Urine Appearance Clear Urine pH 7.5 Ur Specific [place] 1.020 Urine Protein 100 H Urine Glucose (UA) Negative Urine Ketones 15 H Urine Blood Moderate H Urine Nitrite Negative Urine Bilirubin Small H Urine Urobilinogen 2.0 H Ur Leukocyte Esterase Trace H Urine RBC 20-30 H Urine WBC 5-10 H Ur Epithelial Cells 1-3 Amorphous Sediment 2+ Urine Bacteria 1+ Urine Mucus Large Vital Signs 07/10/20 10:14 Temperature 97.5 F L Pulse Rate [ 83 Pulse Ox] Respiratory 22 Rate Blood Pressure 130/87 [L Arm] O2 Sat by Pulse 92 L Oximetry Departure - Departure Clinical Impression: UTI (urinary tract infection) with pyuria Gaming catheter problem Qualifiers: Encounter type: subsequent encounter Qualified Code(s): T83.9XXD - Unspecified complication of genitourinary prosthetic device, implant and graft, subsequent encounter Time of Disposition: 11:50 Disposition: Discharge to Home or Self Care Condition: Good Instructions: Urinary Tract Infection, Adult (DC), How to Care for Your Gaming Catheter, Male Diet: resume usual diet Activity: increase activity as tolerated Referrals: [place] III, MD [Primary Care Provider] - 1-5 Days Prescriptions: Cefdinir 300 mg PO BID #14 capsule Home Medications: Ambulatory Orders Allopurinol [Zyloprim] 300 mg PO BID 01/20/18 Carvedilol 6.25 mg PO BID 01/20/18 Chlorthalidone 25 mg PO DAILY 01/20/18 Fluticasone Furoate [Flonase Sensimist] 27.5 mcg NA PRN PRN 10/01/19 Gabapentin [Neurontin] 100 mg PO PRN PRN 10/01/19 Atorvastatin Calcium [Lipitor] 10 mg PO DAILY 02/07/20 Meloxicam [Mobic] 15 mg PO DAILY 02/07/20 Cefdinir 300 mg PO BID #14 capsule 07/10/20
[2020-07-10 11:58] VITALS: BP 140/82; TEMP 97.8; O2SAT 97
--- NOTE | 2020-07-11 10:26 | MRI ---
Study: MRI of the Right Hip. Indication: RIGHT HIP PAIN Technique: Multiplanar, multi sequence MRI of the right hip was obtained without intravenous contrast. Comparison: None. Findings: High-grade tendinosis right is minimus/medius tendon insertions with high grade partial, near full-thickness tearing of the posterior two thirds of the right gluteus medius tendon insertion. Torn tendon fibers proximally retracted by up to 3.5 cm. Moderate right greater trochanteric bursal edema and inflammation. Tendinosis and attenuation left gluteus minimus/medius insertions. Tendinosis bilateral hamstring tendon origins. Severe pubic subtle osteoarthritis. Prostatomegaly. Gaming catheter present. Pronounced lower lumbar disc disease. Moderate right and [id number] left hip osteoarthritis. Degenerative tearing of the right hip labrum. Impression: High-grade tendinosis right gluteus minimus/medius tendon insertions with high-grade partial thickness tearing and mild retraction of the right gluteus medius tendon insertion. Surrounding edema and moderate right greater trochanteric bursal edema present. Prostatomegaly. Correlation with PSA recommended. Additional findings as above. Electronically signed by: Gordon Lewis MD 07/11/2020 10:24 AM [facility]
--- NOTE | 2020-07-13 10:33 | MRI ---
Study: MRI of the Right Shoulder. Indication: PAIN Technique: Multiplanar, multi sequence MRI of the right shoulder was obtained without intravenous contrast. Comparison: None. Findings: Severe hypertrophic AC joint osteoarthritis. Type II acromion with mild lateral downsloping. Mild superior migration humeral head. Full-thickness, fullwidth supraspinatus tendon tear with high-grade articular tearing anterior half infraspinatus tendon insertion. Torn tendon fibers retracted to the glenohumeral joint line. Full-thickness, fullwidth subscapularis tendon tearing with retraction of torn tendon fibers medial to the glenoid. Intramuscular edema supraspinatus and subscapularis muscle bellies. Mild to moderate atrophy and grade 2 fatty infiltration rotator cuff musculature, most pronounced at the subscapularis muscle belly. Long head biceps tendon torn and distally retracted. Circumferential labral degeneration. Mild to moderate glenohumeral joint osteoarthritis. Moderate size joint effusion. No acute fracture. Impression: Full-thickness, fullwidth supraspinatus tendon tearing high-grade articular tearing anterior half of the infraspinatus tendon. Retracted full-thickness, fullwidth subscapularis tendon tear. Mild to moderate atrophy and grade 2 fatty infiltration rotator cuff musculature. Long head biceps tendon torn and distally retracted. Circumferential labral degeneration. Mild to moderate glenohumeral joint osteoarthritis and moderate size joint effusion. Severe AC joint osteoarthritis. Electronically signed by: Gordon Lewis MD 07/13/2020 10:31 AM ASSISTANT MANAGER AIRSIDE OPERATIONS
== END 2020-07-10 11:56 | disposition home or self-care (01) ==
LOC: ER 09:51
DX: T83.518A Infection and inflammatory reaction due to other urinary catheter, initial encounter (principal); Y73.1 Therapeutic (nonsurgical) and rehabilitative gastroenterology and urology devices associated with adverse incidents; K21.9 Gastro-esophageal reflux disease without esophagitis; I10 Essential (primary) hypertension; E66.9 Obesity, unspecified; Z85.828 Personal history of other malignant neoplasm of skin; Z79.899 Other long term (current) drug therapy; Z88.8 Allergy status to other drugs, medicaments and biological substances; Z68.35 Body mass index [BMI] 35.0-35.9, adult

== ENCOUNTER 2020-07-12 23:56 | Emergency (ER) | payer MEDICARE ==
--- NOTE | 2020-07-13 00:14 | ED.PDOC ---
History of Present Illness - General Stated Complaint: CP, short of breath, diaphoretic Time Seen by Provider: 07/12/20 23:58 Source: patient, RN notes reviewed, Vital Signs reviewed, EMS notes reviewed, EMS, old records Exam Limitations: no limitations - History of Present Illness Initial Comments: 80 yo male with hx of HTN and BPH with chronic indwelling catheter was going to empty his [place] bag, when he developed lightheadedness, shortness of breath and chest tightness. [place] like he was going to pass out. Did not have LOC. He sat down. Chest pain lasted less than 30 minutes. States shortness of breath is chronic. Was placed on recent antibiotics 4 days ago for UTI. On oxygen at night with CPAP, no oxygen during day. no hx of blood clots. no recent travel or immobility. Allergies/Adverse Reactions: Allergies Zolpidem [From Ambien] Adverse Reaction (Verified 07/07/20 15:48) Home Medications: Ambulatory Orders Allopurinol [Zyloprim] 300 mg PO BID 01/20/18 Carvedilol 3.125 mg PO BID 01/20/18 Chlorthalidone 12.5 mg PO DAILY 01/20/18 Meloxicam 15 mg PO BEDTIME 07/13/20 Tamsulosin HCl 0.4 mg DAILY 07/13/20 Tolterodine Tartrate ER [Detrol LA] 4 mg DAILY 07/13/20 Review of Systems - Review of Systems Constitutional: Denies: chills, fever, malaise EENTM: Denies: blurred vision, double vision, nose congestion Respiratory: States: short of breath. Denies: cough, orthopnea, stridor Cardiology: States: chest pain. Denies: palpitations, syncope Gastrointestinal/Abdominal: Denies: abdominal pain, diarrhea, nausea, vomiting Genitourinary: Denies: hematuria Musculoskeletal: Denies: back pain, muscle pain Skin: Denies: rash Neurological: States: headache. Denies: numbness, paresthesia, seizure, weakness Endocrine: Denies: unexplained weight gain, unexplained weight loss Hematologic/Lymphatic: Denies: easy bleeding, easy bruising Past Medical History (General) - Patient Medical History Hx Seizures: No Hx Stroke: No Hx Dementia: No Hx Asthma: No Hx of COPD: No Hx Cardiac Disorders: No Hx Congestive Heart Failure: No Hx Pacemaker: No Hx Hypertension: Yes Hx Thyroid Disease: No Hx Diabetes: No Hx Gastroesophageal Reflux: Yes Hx Renal Disease: No Hx Cancer: Yes - skin Hx of HIV: No Hx MRSA: Yes Hx Other PMH: Yes - RODRIGO MRSA Source:: nose swab - Vaccination History Hx Tetanus, Diphtheria Vaccination: Yes Hx Influenza Vaccination: Yes Hx Pneumococcal Vaccination: No - Social History Hx Tobacco Use: No Hx Alcohol Use: No Hx Substance Use: No Hx Physical Abuse: No Hx Emotional Abuse: No Family Medical History - Family History Mother Family History: Unknown Physical Exam - Physical Exam General Appearance: Alert, Comfortable, No apparent distress, Well Developed, Well Groomed, Well Hydrated, Well Nourished Eye Exam: bilateral normal Ears, Nose, Throat: hearing grossly normal, normal ENT inspection Neck: non-tender, full range of motion, supple, normal inspection Respiratory: chest non-tender, lungs clear, normal breath sounds, no respiratory distress, no accessory muscle use Cardiovascular/Chest: normal peripheral pulses, regular rate, rhythm, no gallop, no JVD, no murmur Peripheral Pulses: radial,right: 2+, radial,left: 2+ Gastrointestinal/Abdominal: normal bowel sounds, non tender, soft, no organomegaly, no pulsatile mass Rectal Exam: deferred Back Exam: normal inspection, no CVA tenderness, no vertebral tenderness Extremity: normal range of motion, non-tender, no calf tenderness, normal capillary refill, other - chronic lymphedema 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 States it was substuernal did not radiate. Pressure in nature. Associated with some shortness of breath. No prior cardiac history. When he arrive HR 99, BP 105/65, RR 24, saturation 91% on 3 L NC. He does not wear home oxygen during the day, but does have oxygen concentrator in his CPAP. EKG RBBB, nonspecific St changes anteriorlateral leads, q waves in inferior leads, no old EKG to compare. Do show preanesthesia document that mention patient has had a RBBB on ekg. Cxr showed widen mediastinum, we got a CT of his chest which showed tortuous aorta. Blood work showed a troponin of 0.1, Cr 1.89, glucose 267. He is currently chest pain free. I am not 100% clear why he is hypoxic. COVID was negative. Blood gas showed a low PO2 66 but otherwise unremarkable. We did get a d-dimer which was elevated, but unable to get CTA due to his Cr. Given aspirin and started on heparin drip. Patients cardiology Dr. Alatorre is in [place], but they don't have any beds available. Patient transferred for NSTEMI. Accepting physician Dr. Gottlieb The data reviewed when caring for this patient included: nurse notes, prior records, etc. The history and assessments from nurses notes were reviewed and considered, and the patient's home medication list was also reviewed and considered. My assessment and the results of testing completed here in the ED were discussed with the patient/family. All questions were answered, and they express understanding of my assessment and the plan. Porsha Castellano DO #[id number] - Results/Orders Results/Orders: CT abd/pelvis: gallstones, renal cyst, no acute pathology CXR with widen mediastinum, no prior for comparison, cannot get CTA due renal function. Will get CT without contrast. CT head. 1. No CT evidence of acute intracranial abnormality. 2. Dolichoectasia of major intracranial arteries; this is most predominant in right internal carotid artery supraclinoid segment. CT Chest shows ascending aorta 4.4 cm at widest point. Thoracic aortic at herosclerosis and tortuosity. - EKG/XRAY/CT EKG: Sinus, RBBB Comments: q wave inferior leads,no specific st changes, no prior for comparison XRAY: chest Departure - Departure Clinical Impression: Hypoxia, NSTEMI (non-ST elevated myocardial infarction), Hyperglycemia Time of Disposition: 01:50 Disposition: Transfer to Hospital Condition: Fair Home Medications: Ambulatory Orders Allopurinol [Zyloprim] 300 mg PO BID 01/20/18 Carvedilol 3.125 mg PO BID 01/20/18 Chlorthalidone 12.5 mg PO DAILY 01/20/18 Meloxicam 15 mg PO BEDTIME 07/13/20 Tamsulosin HCl 0.4 mg DAILY 07/13/20 Tolterodine Tartrate ER [Detrol LA] 4 mg DAILY 07/13/20 Transfer to Outside Facility - Transfer Information Decision to Transfer Date: 07/13/20 Decision to Transfer Time: 00:52 Reason for Transfer: required specialist not available Accepting Provider:: accepted Dr. Gottlieb
[2020-07-13] MEDS ORDERED: ASPIRIN (CHEWABLE) 81 MG TAB PO ONE (00:19)
--- NOTE | 2020-07-13 00:23 | RAD ---
EXAM: XR Chest, 1 View CLINICAL HISTORY: The patient is 80 years old and is Male; short of breath TECHNIQUE: Frontal view of the chest. COMPARISON: No relevant prior studies available. FINDINGS: LUNGS: There are slightly low lung volumes. PLEURAL SPACE: Unremarkable. No pneumothorax. HEART: Unremarkable. No cardiomegaly. MEDIASTINUM: Widening of the mediastinum is noted. BONES/JOINTS: Unremarkable. VASCULATURE: Atherosclerosis of the aorta is present. IMPRESSION: Widening of the mediastinum which may be secondary to low lung volumes and a tortuous and ectatic aorta. However, underlying right hilar mass and/or aortic aneurysm is within the differential. Recommend further evaluation with a CTA of the chest. Electronically signed by: Huma Gambino MD 07/13/2020 12:22 AM [employer]
--- NOTE | 2020-07-13 01:07 | CT ---
EXAM: CT Abdomen and Pelvis Without Intravenous Contrast CLINICAL HISTORY: The patient is 80 years old and is Male; possible aaa pain TECHNIQUE: Axial computed tomography images of the abdomen and pelvis without intravenous contrast. Sagittal and coronal reformatted images were created and reviewed. This CT exam was performed using one or more of the following dose reduction techniques: automated exposure control, adjustment of the mA and/or kV according to patient size, and/or use of iterative reconstruction technique. COMPARISON: No relevant prior studies available. FINDINGS: LUNG BASES: Unremarkable. No mass. No consolidation. HEART: The heart is enlarged. A small pericardial effusion is present. ABDOMEN: LIVER: Homogeneous without focal mass. GALLBLADDER AND BILE DUCTS: Multiple calcified gallstones are present within the gallbladder. There is no ductal dilatation. PANCREAS: Fatty infiltration of the pancreas is noted. No ductal dilation. SPLEEN: Unremarkable. ADRENALS: Unremarkable. No mass. KIDNEYS AND URETERS: Innumerable bilateral renal cysts are present, the largest on the left measures approximately 10.7 cm. The kidneys are atrophic. There is no hydronephrosis or hydroureter of either kidney. No obstructing renal or ureteral calculus is seen. STOMACH AND BOWEL: The stomach is moderately distended with fluid and air. The small bowel is normal in caliber. Stool is present throughout colon. There is no mucosal thickening or evidence of bowel obstruction. PELVIS: APPENDIX: The appendix is normal in caliber without surrounding inflammation. BLADDER: The bladder is decompressed with a Gaming catheter in place. No stones. REPRODUCTIVE: The prostate is enlarged. ABDOMEN and PELVIS: INTRAPERITONEAL SPACE: Unremarkable. No free air. No significant fluid collection. BONES/JOINTS: Multilevel degenerative change of the spine is present. SOFT TISSUES: There are small bilateral fat containing inguinal hernias. A small fat and fluid containing ventral wall hernia is present. VASCULATURE: Atherosclerosis of the vasculature is present. No abdominal aortic aneurysm. LYMPH NODES: Unremarkable. No enlarged lymph nodes. IMPRESSION: 1. Cholelithiasis without CT evidence to suggest cholecystitis. 2. No evidence of aortic aneurysm. 3. Enlarged prostate. 4. Chronic findings as detailed above. Electronically signed by: Huma Gambino MD 07/13/2020 1:05 AM DIALER
--- NOTE | 2020-07-13 01:11 | CT ---
EXAM: CT head without contrast HISTORY: headache COMPARISON: TECHNIQUE: Head/brain axial images acquired without contrast. Coronal and sagittal reformats created. Exam performed according to departmental dose-optimization program which includes automated exposure control, adjustment of mA and/or kV according to patient size, and/or use of iterative reconstruction technique. FINDINGS: No midline shift, mass effect, intracranial hemorrhage, or hydrocephalus. Minimal hypodense periventricular cerebral white matter abnormality. Tiny midlevel right frontal cortical sulcal calcification. Dolichoectasia of major intracranial arteries; this is most predominant in right internal carotid artery supraclinoid segment. Calcified atherosclerotic intracranial internal carotid and vertebral arteries. CSF spaces appear overall mildly enlarged likely representing age-appropriate cerebral volume loss. Paranasal sinuses and mastoid air cells clear. No skull fracture or significant skull lesion. Both lenses show postsurgical changes. IMPRESSION: 1. No CT evidence of acute intracranial abnormality. 2. Dolichoectasia of major intracranial arteries; this is most predominant in right internal carotid artery supraclinoid segment. CTA head with contrast may be helpful to rule out aneurysm. Electronically signed by: Elio Limon MD 07/13/2020 1:09 AM [facility]
--- NOTE | 2020-07-13 01:15 | CT ---
PROCEDURE: CT CHEST WITHOUT IV CONTRAST CLINICAL HISTORY: widened mediastinum TECHNIQUE: Contiguous axial images obtained through the chest without IV contrast. Coronal and sagittal reformatted images provided. This exam was performed according to our departmental dose-optimization program, which includes automated exposure control, adjustment of the mA and/or kV according to patient size and/or use of iterative reconstruction technique. COMPARISON: No prior exams provided for comparison. FINDINGS: Lungs: Bibasilar subsegmental atelectasis/pleural parenchymal scar. No focal consolidation. Airways are patent. Pleura: No effusion. No pneumothorax. Heart and pericardium: The heart is moderately enlarged. Coronary artery calcification. Small pericardial effusion. Mediastinum and agustin: No pathologically enlarged lymph nodes. Lower neck and chest wall: Unremarkable Vessels: Mild to moderate atherosclerotic disease. Thoracic aortic tortuosity. The ascending aorta measures 4.4 cm in maximum diameter. Upper abdomen: Partially visualized right renal cyst measuring 7.2 cm. Bones: Multilevel spondylosis. No acute fracture. IMPRESSION: 1. Thoracic aortic atherosclerosis and tortuosity. The ascending aorta measures 4.4 cm in maximum diameter.. 2. Other findings as above. Electronically signed by: Chaka Willoughby MD 07/13/2020 1:14 AM BOOM OPERATOR
[2020-07-13] MEDS ORDERED: HEPARIN PREMIX 25,000 UNITS in PREMIX BAG 1 BAG IVS SCH (01:45)
[2020-07-13] MEDS ORDERED: HEPARIN SODIUM (PORCINE) 5,000 U/ML VIAL IV ONE (01:45)
[2020-07-13 02:00] VITALS: O2SAT 93
[2020-07-13 02:19] VITALS: BP 141/83; TEMP 97
== END 2020-07-13 02:15 | disposition short-term general hospital (02) ==
LOC: ER 23:56
DX: I21.4 Non-ST elevation (NSTEMI) myocardial infarction (principal); R09.02 Hypoxemia; R73.9 Hyperglycemia, unspecified; R51.9 Headache, unspecified; I45.10 Unspecified right bundle-branch block; N40.0 Benign prostatic hyperplasia without lower urinary tract symptoms; I10 Essential (primary) hypertension; K21.9 Gastro-esophageal reflux disease without esophagitis; G47.33 Obstructive sleep apnea (adult) (pediatric); Z85.828 Personal history of other malignant neoplasm of skin; Z99.81 Dependence on supplemental oxygen; Z79.899 Other long term (current) drug therapy; Z88.8 Allergy status to other drugs, medicaments and biological substances; Z20.828 Contact with and (suspected) exposure to other viral communicable diseases
CPT/HCPCS: 36600; 70450; 71045; 71250; 74176; 80053; 81001; 82009; 82803; 82805; 83735; 83880; 84484; 85025; 85379; 85610; 85730; 87635; 93005; J1644

== ENCOUNTER → 2020-07-27 | Outpatient (CLI) | payer MEDICARE | LOC: GMAL 14:27 | PROVIDERS: ATTEND Family Medicine | DX: M10.9 Gout, unspecified (principal); E78.49 Other hyperlipidemia; Z79.899 Other long term (current) drug therapy ==

== ENCOUNTER 2020-10-02 13:34 | Emergency (ER) | payer MEDICARE ==
--- NOTE | 2020-10-02 14:17 | RAD ---
EXAM DESCRIPTION: Chest,1 View x-ray CLINICAL HISTORY: 80 years Male, chest pain COMPARISON: None. IMPRESSION: Cardiomegaly with borderline central pulmonary vascular congestion. Extensive multifocal bilateral peripheral airspace opacities, most consistent with multifocal pneumonia. Findings commonly reported with Covid 19 are present. No large pleural effusion or pneumothorax. No acute osseous abnormality. Electronically signed by: Germán Yan MD 10/02/2020 2:16 PM INVENTORY REPRESENTATIVE
[2020-10-02 14:24] VITALS: TEMP 98.2
--- NOTE | 2020-10-02 14:40 | ED.PDOC ---
History of Present Illness - General Chief Complaint: General Stated Complaint: Headache, sore throat, cough Time Seen by Provider: 10/02/20 13:51 Source: patient, RN notes reviewed, Vital Signs reviewed, family - Exam Limitations: no limitations - History of Present Illness Initial Comments: Patient is an 80-year-old white male who is been feeling sick for the last 3 to 4 days with intermittent cough, fevers and sore throat. Seen at his PCPs office this morning and was called and told to come to the ED because he had Covid. Patient complains of some mild body aches and some shortness of breath. Patient used to be a long-term smoker but quit years ago. Never diagnosed with COPD but he had better than a 30+ pack year history of smoking and has a history of diffi culty breathing. His symptoms are constant, moderate in intensity, unchanging. Nothing makes them better, they are worse when he exerts himself. Timing/Duration: 1 week Severity: moderate Improving Factors: nothing Worsening Factors: movement Associated Symptoms: cough, fever/chills, shortness of breath, weakness Allergies/Adverse Reactions: Allergies Banana Allergy (Verified 10/02/20 14:15) Zolpidem [From Ambien] Adverse Reaction (Verified 10/02/20 14:15) Home Medications: Ambulatory Orders Allopurinol [Zyloprim] 300 mg PO BID 01/20/18 Carvedilol 3.125 mg PO BID 01/20/18 Chlorthalidone 12.5 mg PO DAILY 01/20/18 Meloxicam 15 mg PO BEDTIME 07/13/20 Tamsulosin HCl 0.4 mg DAILY 07/13/20 Tolterodine Tartrate ER [Detrol LA] 4 mg DAILY 07/13/20 Review of Systems - Review of Systems Constitutional: States: see HPI, chills, fever, malaise, weakness EENTM: States: no symptoms reported. Denies: eye pain, blurred vision, double vision Respiratory: States: see HPI, cough, short of breath. Denies: stridor, wheezing Cardiology: States: no symptoms reported. Denies: chest pain, edema, palpitations, syncope Gastrointestinal/Abdominal: States: no symptoms reported. Denies: abdominal pain, diarrhea, nausea, vomiting Genitourinary: States: no symptoms reported. Denies: dysuria, frequency Musculoskeletal: States: no symptoms reported. Denies: back pain, joint pain, neck pain Skin: States: no symptoms reported. Denies: change in color, rash Neurological: States: see HPI, weakness. Denies: headache, tingling, tremors Endocrine: States: no symptoms reported. Denies: increased hunger, increased thirst, increased urine Hematologic/Lymphatic: States: no symptoms reported. Denies: blood clots, easy bleeding All other Systems: Reviewed and Negative Past Medical History (General) - Patient Medical History Hx Seizures: No Hx Stroke: No Hx Dementia: No Hx Asthma: No Hx of COPD: No Hx Cardiac Disorders: No Hx Congestive Heart Failure: No Hx Pacemaker: No Hx Hypertension: Yes Hx Thyroid Disease: No Hx Diabetes: No Hx Gastroesophageal Reflux: Yes Hx Renal Disease: No Hx Cancer: Yes - skin Hx of HIV: No Hx MRSA: Yes MRSA Source:: nose swab - Vaccination History Hx Tetanus, Diphtheria Vaccination: Yes Hx Influenza Vaccination: Yes Hx Pneumococcal Vaccination: Yes - Social History Hx Tobacco Use: Yes Hx Chewing Tobacco Use: Yes Hx Alcohol Use: No Hx Substance Use: No Hx Physical Abuse: No Hx Emotional Abuse: No Family Medical History - Family History Mother Family History: Unknown Physical Exam - Physical Exam General Appearance: Alert, Anxious, Obvious distress, Well Developed, Well Groomed, Well Hydrated, Well Nourished Eye Exam: bilateral normal Ears, Nose, Throat: hearing grossly normal, normal ENT inspection, normal pharynx Neck: non-tender, full range of motion, supple Respiratory: chest non-tender, lungs clear, normal breath sounds, no respiratory distress, rhonchi Cardiovascular/Chest: normal peripheral pulses, regular rate, rhythm, no edema, no gallop, no JVD, no murmur Peripheral Pulses: radial,right: 2+, radial,left: 2+ Gastrointestinal/Abdominal: normal bowel sounds, non tender, no organomegaly Back Exam: normal inspection, no CVA tenderness, no vertebral tenderness Extremity: normal range of motion, non-tender Neurologic: logistics engineer II-XII nml as tested, no motor/sensory deficits, alert, normal mood/affect, oriented x 3 Skin Exam: normal color, warm/dry Lymphatic: no adenopathy Progress - Progress Progress: Differential diagnosis: Covid pneumonia, CHF, PE, bacterial pneumonia among others. 02/08/21 18:05 Patient is feeling much better. He has a history of hypoxia and is on oxygen at home so the fact that he was not on oxygen at the doctor's office was hypoxic is not unusual per him and his . Patient had a mildly elevated troponin that normalized after a single repeat. Patient already has prescriptions for his PCP for treatment of his Covid and pneumonia. Plan on discharge home at this time. I discussed this plan of care as well as all the lab work including the elevated troponin with the patient and his and they voiced understanding and agreement with the plan of care. Fidel Miguel M.D. #[id number] - Results/Orders Results/Orders: EXAM DESCRIPTION: Chest,1 View x-ray CLINICAL HISTORY: 80 years Male, chest pain COMPARISON: None. IMPRESSION: Cardiomegaly with borderline central pulmonary vascular congestion. Extensive multifocal bilateral peripheral a irspace opacities, most consistent with multifocal pneumonia. Findings commonly reported with Covid 19 are present. No large pleural effusion or pneumothorax. No acute osseous abnormality. Electronically signed by: Germán Yan MD 10/02/2020 2:16 PM POLISHER SAND EKG performed 02 October 2020 at 1355 hrs.: Normal sinus rhythm at 86 bpm, right bundle branch block, left anterior fascicular block, abnormal EKG. 10/02/20 13:51 IV Care:Saline Lock per Protoc STAT Isolation:Airborne ONCE Telemetry STAT 10/02/20 14:00 EKG STAT Pulse Ox, Continuous Monitoring STAT 10/02/20 14:48 STREP A SCREEN CULTURE Stat 10/03/20 14:00 Pulse Ox, Continuous Monitoring STAT 10/04/20 14:00 Pulse Ox, Continuous Monitoring STAT Laboratory Results - last 24 hr 10/02/20 10/02/20 10/02/20 14:21 14:21 14:21 WBC 6.8 RBC 3.92 L Hgb 12.5 L Hct 37.5 L MCV 95.7 H MCH 31.9 H MCHC 33.4 RDW 14.0 Plt Count 137 MPV 8.9 Absolute Neuts (auto) 6.40 Absolute Lymphs (auto) 0.10 L Absolute Monos (auto) 0.30 Absolute Eos (auto) 0.00 Absolute Basos (auto) 0.00 Neutrophils % 93.1 H Lymphocytes % 2.0 L Monocytes % 4.3 Eosinophils % 0.0 L Basophils % 0.6 PTT (SP) 31.6 D-Dimer, Quantitative 234.0 Sodium 141 Potassium 3.7 Chloride 107 Carbon Dioxide 24 Anion Gap 13.7 BUN 28 H Creatinine 1.46 H BUN/Creatinine Ratio 19.2 Random Glucose 174 H Serum Osmolality 290.9 Calcium 8.7 Magnesium 2.0 Total Bilirubin 0.8 AST 20 ALT 10 Alkaline Phosphatase 50 LD Total 203 H Creatine Kinase 25 L Troponin I C-Reactive Protein 26.7 H* B-Natriuretic Peptide 479.0 H* Serum Total Protein 6.1 L Albumin 3.0 L Globulin 3.1 Albumin/Globulin Ratio 1.0 L Group A Strep Rapid 10/02/20 10/02/20 10/02/20 14:21 14:48 16:22 WBC RBC Hgb Hct MCV MCH MCHC RDW Plt Count MPV Absolute Neuts (auto) Absolute Lymphs (auto) Absolute Monos (auto) Absolute Eos (auto) Absolute Basos (auto) Neutrophils % Lymphocytes % Monocytes % Eosinophils % Basophils % PTT (SP) D-Dimer, Quantitative Sodium Potassium Chloride Carbon Dioxide Anion Gap BUN Creatinine BUN/Creatinine Ratio Random Glucose Serum Osmolality Calcium Magnesium Total Bilirubin AST ALT Alkaline Phosphatase LD Total Creatine Kinase Troponin I 0.06 H 0.05 C-Reactive Protein B-Natriuretic Peptide Serum Total Protein Albumin Globulin Albumin/Globulin Ratio Group A Strep Rapid Negative Vital Signs 10/02/20 10/02/20 10/02/20 13:51 14:19 15:00 Temperature 98.2 F 98.2 F Pulse Rate [ 90 91 H Right Radial] Respiratory 20 20 20 Rate Blood Pressure 162/84 142/72 [Left Arm] O2 Sat by Pulse 94 L 91 L Oximetry 10/02/20 10/02/20 16:00 17:00 Temperature 98.2 F 98.2 F Pulse Rate [ 86 77 Right Radial] Respiratory 18 16 Rate Blood Pressure 123/61 168/82 [Left Arm] O2 Sat by Pulse 92 L 92 L Oximetry Departure - Departure Clinical Impression: COVID-19, Pneumonia due to COVID-19 virus, Elevated troponin I level Dyspnea Qualifiers: Dyspnea type: unspecified Qualified Code(s): R06.00 - Dyspnea, unspecified Time of Disposition: 18:01 Disposition: Discharge to Home or Self Care Condition: Fair Departure Forms: ED Discharge - Pt. Copy, Patient Portal Self Enrollment Instructions: Coronavirus Disease 2019 (COVID-19) (DC), Shortness of Breath (Dyspnea) (DC) Diet: resume usual diet Activity: increase activity as tolerated Referrals: [place] III, MD [Primary Care Provider] - 1-2 Days Home Medications: Ambulatory Orders Allopurinol [Zyloprim] 300 mg PO BID 01/20/18 Carvedilol 3.125 mg PO BID 01/20/18 Chlorthalidone 12.5 mg PO DAILY 01/20/18 Meloxicam 15 mg PO BEDTIME 07/13/20 Tamsulosin HCl 0.4 mg DAILY 07/13/20 Tolterodine Tartrate ER [Detrol LA] 4 mg DAILY 07/13/20
[2020-10-02] MEDS ORDERED: ACETAMINOPHEN 325 MG TAB PO ONE (17:23)
[2020-10-02 18:33] VITALS: BP 150/79; O2SAT 93
== END 2020-10-02 18:20 | disposition home or self-care (01) ==
LOC: ER 13:34
DX: U07.1 COVID-19 (principal); J12.82 Pneumonia due to coronavirus disease 2019; R77.8 Other specified abnormalities of plasma proteins; I45.2 Bifascicular block; I10 Essential (primary) hypertension; K21.9 Gastro-esophageal reflux disease without esophagitis; Z87.891 Personal history of nicotine dependence; Z85.828 Personal history of other malignant neoplasm of skin; Z79.899 Other long term (current) drug therapy; Z88.8 Allergy status to other drugs, medicaments and biological substances

== ENCOUNTER 2020-10-04 17:55 | Inpatient (IN) | payer MEDICARE ==
[2020-10-04] MEDS ORDERED: SODIUM CHLORIDE 0.9% 1000ML 1,000 ML IVS ONE (18:20)
[2020-10-04] MEDS ORDERED: DEXAMETHASONE INJ 10 MG/ML VIAL IV ONE (18:23)
[2020-10-04] MEDS ORDERED: cefTRIAXone SODIUM 1 GM in SODIUM CHL 0.9% 50ML MIN-BAG+ 50 ML IVPB ONE (18:23)
[2020-10-04] MEDS ORDERED: REMDESIVIR 200 MG in SODIUM CHLORIDE 0.9% 250ML 250 ML IVPB ONE (18:23)
[2020-10-04] MEDS ORDERED: AZITHROMYCIN IV 500 MG in SODIUM CHLORIDE 0.9% 250ML 250 ML IVPB ONE (18:23)
[2020-10-04] MEDS: SODIUM CHLORIDE 0.9% (FLUSH) 10 ML SYG IV PRN (18:47)
--- NOTE | 2020-10-04 18:47 | ED.PDOC ---
History of Present Illness - General Chief Complaint: Respiratory Problem Stated Complaint: shortness of breath Time Seen by Provider: 10/04/20 18:19 Source: patient, family - History of Present Illness Initial Comments: The patient is an 80 year old with history of hypertension, gout, and prior pulmonary embolism who presents to the ED for shortness of breath. He was seen by his PCP two days ago and tested positive for COVID-19. He was referred to the ED where he was evaluated and discharged home. he was noted to be mildly hypoxic at that time but it was also noted that he wears home oxygen. The patient states that he has never been diagnosed with COPD but does have a history of heavy smoking and wears oxygen at night. He states that he was given a steroid shot and started on antibiotics. He has not been taking steroids at home. He has gone from wearing oxygen only at night time to wearing it continuously. He presents to the ED today due to worsening shortness of breath. He is noted to have hypoxia to 50% on 4L nasal canula. No other complaints at this time. Allergies/Adverse Reactions: Allergies Banana Allergy (Verified 10/02/20 14:15) Zolpidem [From Ambien] Adverse Reaction (Verified 10/02/20 14:15) Home Medications: Ambulatory Orders Allopurinol [Zyloprim] 300 mg PO BID 01/20/18 Carvedilol 3.125 mg PO BID 01/20/18 Chlorthalidone 12.5 mg PO DAILY 01/20/18 Meloxicam 15 mg PO BEDTIME 07/13/20 Tamsulosin HCl 0.4 mg DAILY 07/13/20 Tolterodine Tartrate ER [Detrol LA] 4 mg DAILY 07/13/20 Review of Systems - Review of Systems Constitutional: States: chills, malaise, weakness. Denies: fever EENTM: States: no symptoms reported Respiratory: States: see HPI, cough, short of breath Cardiology: Denies: chest pain, palpitations Gastrointestinal/Abdominal: Denies: abdominal pain, diarrhea, nausea, vomiting Genitourinary: States: no symptoms reported Musculoskeletal: States: no symptoms reported Neurological: States: no symptoms reported Endocrine: States: no symptoms reported Hematologic/Lymphatic: States: no symptoms reported All other Systems: Reviewed and Negative Past Medical History (General) - Patient Medical History Hx Seizures: No Hx Stroke: No Hx Dementia: No Hx Asthma: No Hx of COPD: No Hx Cardiac Disorders: No Hx Congestive Heart Failure: No Hx Pacemaker: No Hx Hypertension: Yes Hx Thyroid Disease: No Hx Diabetes: No Hx Gastroesophageal Reflux: Yes Hx Renal Disease: No Hx Cancer: Yes - skin Hx of HIV: No Hx MRSA: Yes MRSA Source:: nose swab - Vaccination History Hx Tetanus, Diphtheria Vaccination: Yes Hx Influenza Vaccination: Yes Hx Pneumococcal Vaccination: Yes - Social History Hx Tobacco Use: Yes Hx Chewing Tobacco Use: Yes Hx Alcohol Use: No Hx Substance Use: No Hx Physical Abuse: No Hx Emotional Abuse: No Family Medical History - Family History Mother Family History: Unknown Physical Exam - Physical Exam General Appearance: Anxious, Obvious distress Eyes, Ears, Nose, Throat Exam: normal ENT inspection Neck: non-tender, full range of motion, supple Respiratory: respiratory distress, decreased breath sounds, accessory muscle use, rales Cardiovascular/Chest: normal peripheral pulses, tachycardia Gastrointestinal/Abdominal: non tender, soft Rectal Exam: deferred Neurologic: tripper II-XII nml as tested, no motor/sensory deficits, alert, normal mood/affect, oriented x 3 Skin Exam: normal color Lymphatic: no adenopathy Progress - Progress Progress: 10/04/20 20:48 Patient reassessed, evaluation as below. Discussed with ONOFRE Epps, will admit for acute respiratory failure secondary to COVID-19. The patient is comfortable on BiPAP, O2 sat improved to 95% and he voices no complaints at this time. - Results/Orders Results/Orders: 10/04/20 18:19 BLOOD CULTURE Stat SPUTUM CULTURE Stat 10/04/20 18:20 IV Care:Saline Lock per Protoc QSHIFT Telemetry .ONCE Sodium Chloride 0.9% (Flush) [Saline Flush Syringe] 10 ml IV PRN PRN EKG Stat URINALYSIS Stat Laboratory Results - last 24 hr 10/04/20 10/04/20 10/04/20 18:35 18:35 18:35 WBC 5.6 RBC 4.12 L Hgb 12.9 L Hct 39.8 L MCV 96.6 H MCH 31.4 H MCHC 32.5 L RDW 13.8 Plt Count 157 MPV 9.1 Absolute Neuts (auto) 5.20 Absolute Lymphs (auto) 0.20 L Absolute Monos (auto) 0.20 Absolute Eos (auto) 0.00 Absolute Basos (auto) 0.00 Neutrophils % 92.3 H Lymphocytes % 4.0 L Monocytes % 3.2 Eosinophils % 0.2 L Basophils % 0.3 PT 11.3 H INR 1.14 PTT (SP) 32.1 H Fibrinogen D-Dimer, Quantitative 665.0 H* Sodium 142 Potassium 3.8 Chloride 109 Carbon Dioxide 20 L Anion Gap 16.8 BUN 44 H D Creatinine 1.79 H BUN/Creatinine Ratio 24.6 H Random Glucose 156 H Serum Osmolality 297.5 H Lactic Acid Calcium 9.2 Magnesium Ferritin Total Bilirubin 0.5 AST 39 ALT 16 Alkaline Phosphatase 61 D Creatine Kinase CK-MB (CK-2) CK-MB (CK-2) % Troponin I C-Reactive Protein B-Natriuretic Peptide Serum Total Protein 6.6 Albumin 2.9 L Globulin 3.7 H Albumin/Globulin Ratio 0.8 L 10/04/20 10/04/20 10/04/20 18:35 18:35 18:35 WBC RBC Hgb Hct MCV MCH MCHC RDW Plt Count MPV Absolute Neuts (auto) Absolute Lymphs (auto) Absolute Monos (auto) Absolute Eos (auto) Absolute Basos (auto) Neutrophils % Lymphocytes % Monocytes % Eosinophils % Basophils % PT INR PTT (SP) Fibrinogen 675 H D-Dimer, Quantitative Sodium Potassium Chloride Carbon Dioxide Anion Gap BUN Creatinine BUN/Creatinine Ratio Random Glucose Serum Osmolality Lactic Acid Calcium Magnesium Ferritin 378.7 H Total Bilirubin AST ALT Alkaline Phosphatase Creatine Kinase 29 L CK-MB (CK-2) 1.6 CK-MB (CK-2) % Not Reportable Troponin I 0.04 C-Reactive Protein B-Natriuretic Peptide 665.0 H* Serum Total Protein Albumin Globulin Albumin/Globulin Ratio 10/04/20 10/04/20 10/04/20 18:35 18:35 20:23 WBC RBC Hgb Hct MCV MCH MCHC RDW Plt Count MPV Absolute Neuts (auto) Absolute Lymphs (auto) Absolute Monos (auto) Absolute Eos (auto) Absolute Basos (auto) Neutrophils % Lymphocytes % Monocytes % Eosinophils % Basophils % PT INR PTT (SP) Fibrinogen D-Dimer, Quantitative Sodium Potassium Chloride Carbon Dioxide Anion Gap BUN Creatinine BUN/Creatinine Ratio Random Glucose Serum Osmolality Lactic Acid 5.0 H* 2.0 Calcium Magnesium 2.2 Ferritin Total Bilirubin AST ALT Alkaline Phosphatase Creatine Kinase CK-MB (CK-2) CK-MB (CK-2) % Troponin I C-Reactive Protein 33.5 H* D B-Natriuretic Peptide Serum Total Protein Albumin Globulin Albumin/Globulin Ratio - EKG/XRAY/CT Comments: 1811 sinus rhythm, left axis, LVH, prolonged QT Departure - Departure Clinical Impression: Acute respiratory failure due to COVID-19 Time of Disposition: 20:50 Disposition: Admit Patient Departure Forms: ED Discharge - Pt. Copy, Patient Portal Self Enrollment Referrals: [place] III, MD [Primary Care Provider] - 1-2 Weeks Home Medications: Ambulatory Orders Allopurinol [Zyloprim] 300 mg PO BID 01/20/18 Carvedilol 3.125 mg PO BID 01/20/18 Chlorthalidone 12.5 mg PO DAILY 01/20/18 Meloxicam 15 mg PO BEDTIME 07/13/20 Tamsulosin HCl 0.4 mg DAILY 07/13/20 Tolterodine Tartrate ER [Detrol LA] 4 mg DAILY 07/13/20 Critical Care Note - Critical Care Note Total Time (mins): 45 Comments: 45 minutes of direct patient care were spent on the following: history and physical exam, review of prior records, ordering and reviewing labs, ordering and reviewing imaging, ventilator management to prevent respiratory failure, and re-assessment of the patient. Decision To Admit - Decistion To Admit Decision to Admit Reason: Admit from ER Decision to Admit Date: 10/04/20 Decision to Admit Time: 20:51
--- NOTE | 2020-10-04 18:54 | RAD ---
EXAM: Chest,1 View CLINICAL INDICATION: Shortness of breath COMPARISON: 10/02/2020 FINDINGS: A single view of the chest was obtained. The heart size is normal. The pulmonary vascularity is unremarkable. Again noted are bilateral perihilar infiltrates consistent with pneumonia with no change from prior. There is no pneumothorax. IMPRESSION: Stable bilateral perihilar infiltrates, consistent with pneumonia. Electronically signed by: Hector Cerda MD 10/04/2020 6:53 PM [employer] WIRE FINISHER
[2020-10-04] MEDS ORDERED: ALBUTEROL INHALER 64 PUFF/8GM INH PRN (22:36)
[2020-10-04] MEDS ORDERED: ACETAMINOPHEN 325 MG TAB PO PRN (22:43)
[2020-10-04] MEDS ORDERED: ONDANSETRON INJ 4 MG/2 ML VIAL IV PRN (22:43)
[2020-10-04] MEDS ORDERED: SODIUM CHLORIDE 0.9% (FLUSH) 10 ML SYG IV PRN (22:43)
[2020-10-04] MEDS ORDERED: CARVEDILOL 3.125 MG TAB ONE (22:54)
[2020-10-04] MEDS: PROMETHAZINE W/CODEINE SYR 6.25 MG/10 MG/5 ML UD PO PRN (22:58)
[2020-10-04] MEDS ORDERED: IV SET AND CAP CHANGE INJ INJ SCH (23:00)
[2020-10-04] MEDS ORDERED: CARVEDILOL 3.125 MG PO SCH (23:00)
[2020-10-04] MEDS ORDERED: APIXABAN 5 MG TAB PO SCH (23:00)
[2020-10-05] MEDS: PROMETHAZINE W/CODEINE SYR 6.25 MG/10 MG/5 ML UD PO PRN ×2 (03:03→07:50)
[2020-10-05 06:05] VITALS: BP 168/82; TEMP 97.2
[2020-10-05] MEDS ORDERED: PANTOPRAZOLE SODIUM IV 40 MG VIAL IV SCH (06:30)
[2020-10-05] MEDS ORDERED: SODIUM CHLORIDE 0.9% 250ML 0 ML ONE (07:06)
[2020-10-05] MEDS ORDERED: REMDESIVIR IV 100 MG VIAL ONE (07:06)
[2020-10-05] MEDS: SODIUM CHLORIDE 0.9% (FLUSH) 10 ML SYG IV PRN (07:32)
--- NOTE | 2020-10-05 07:56 | RAD ---
EXAM: XR Chest, 1 View CLINICAL HISTORY: The patient is 80 years old and is Male; COVID PNA TECHNIQUE: Single upright portable view of the chest. COMPARISON: October 04, 2020 6:41 PM. FINDINGS: Lungs: Bilateral pulmonary opacities are moderately increased compared with the prior exam. Pleural space: Unremarkable. No pneumothorax. Heart: The cardiac silhouette is enlarged versus artifact of AP technique. Cardiomediastinal silhouette is not significantly changed given the differences in technique. Mediastinum: See above. Bones/joints: The bones and joints are unchanged as visualized. Upper abdomen: No free air in the visualized upper abdomen. IMPRESSION: Bilateral pulmonary opacities are moderately increased compared with the prior exam. Electronically signed by: Nissa Ireland MD 10/05/2020 7:54 AM RECRUITING ADMINISTRATOR
[2020-10-05] MEDS ORDERED: ALBUTEROL INHALER 64 PUFF/8GM INH SCH (08:00)
[2020-10-05] MEDS ORDERED: REMDESIVIR 100 MG in SODIUM CHLORIDE 0.9% 250ML 250 ML IVPB SCH (08:00)
[2020-10-05] MEDS ORDERED: AZITHROMYCIN IV 500 MG VIAL IVPB ONE (08:22)
[2020-10-05] MEDS ORDERED: CARVEDILOL 3.125 MG TAB ONE (08:22)
[2020-10-05] MEDS ORDERED: cefTRIAXone SODIUM 1 GM VIAL ONE (08:23)
[2020-10-05] MEDS ORDERED: SODIUM CHLORIDE 0.9% 250ML 250 ML ONE (08:23)
[2020-10-05] MEDS ORDERED: SODIUM CHL 0.9% 50ML MIN-BAG+ 0 ML IVPB ONE (08:23)
[2020-10-05] MEDS ORDERED: SUCCINYLCHOLINE CHLORIDE 200 MG/10 ML VIAL ONE (08:52)
[2020-10-05] MEDS ORDERED: PROPOFOL 200 MG/20 ML VIAL IV ONE (08:53)
[2020-10-05] MEDS ORDERED: CARVEDILOL 3.125 MG TAB PO SCH (09:00)
[2020-10-05] MEDS ORDERED: guaiFENesin ER TAB 600 MG TAB PO SCH (09:00)
[2020-10-05] MEDS ORDERED: DEXAMETHASONE INJ 10 MG/ML VIAL IV SCH ×2 (09:00)
[2020-10-05] MEDS ORDERED: AZITHROMYCIN IV 500 MG in SODIUM CHLORIDE 0.9% 250ML 250 ML IVPB SCH (09:00)
[2020-10-05] MEDS ORDERED: ALLOPURINOL 300 MG TAB PO SCH (09:00)
[2020-10-05] MEDS ORDERED: BIFIDOBACTERIUM INFANTIS 4 MG CAP PO SCH (09:00)
[2020-10-05] MEDS ORDERED: fentaNYL CITRATE INJ 50 MCG/ML 2 ML AMP ONE (09:01)
[2020-10-05] MEDS ORDERED: ETOMIDATE INJECTION 2 MG/ML 20ML VIAL IV ONE (09:01)
[2020-10-05] MEDS ORDERED: MIDAZOLAM HCL 10 MG/10 ML INJ IV ONE (09:01)
[2020-10-05] MEDS ORDERED: VECURONIUM BROMIDE 10 MG VIAL IV ONE (09:01)
--- NOTE | 2020-10-05 09:26 | RAD ---
EXAM DESCRIPTION: Chest,1 View CLINICAL HISTORY: check ET tube placement COMPARISON: October 05, 2020 IMPRESSION: Single AP portable upright view of the chest shows enlargement of the cardiomediastinal silhouette with mild prominence of the pulmonary vascularity similar to previous. Interval placement of endotracheal tube is seen with tip in good positioning at the level of the clavicular heads. Lungs are mildly hypoaerated. Moderate diffuse alveolar and mild interstitial airspace infiltrates are seen throughout the lungs compatible with bilateral pneumonia. Most of the right lateral chest is not included in the [id number].. No obvious pleural effusion or pneumothorax is seen. Electronically signed by: Kapil Rojas MD 10/05/2020 9:24 AM DOCUMENT PREPARATION SPECIALIST
[2020-10-05] MEDS ORDERED: PROPOFOL 500 MG/50 ML VIAL IV ONE (10:00)
--- NOTE | 2020-10-05 10:32 | SSS ---
SUPERVISING PHYSICIAN: Ryder Mccallum MD DATE OF ADMISSION: 10/04/20 DATE OF TRANSFER: 10/05/20 CHIEF COMPLAINT: Respiratory failure due to COVID. HISTORY OF PRESENT ILLNESS: Mr. Sam is an 80-year-old male patient with a history of gout, hypertension and a previous pulmonary embolism currently on Eliquis. He presented to the Emergency Room last night complaining of shortness of breath. He had seen his primary care physician two previously and tested positive for COVID. He was referred to the ER at the time of his initial evaluation for further evaluation and was discharged home. At that time, he was mildly hypoxic, but it was noted he wears home oxygen. He had never been diagnosed previously with COPD, but he does have a history of being a heavy smoker and currently wears oxygen at night. Apparently in the ER, he was given a steroid shot and started on antibiotics. He was given a prescription for steroids at home, but apparently did not have those filled. He had gone from wearing his oxygen only at night to having to wear it continuously. He presented to the ER with worsening shortness of breath, initially noted to be saturating 50% on 4 liters nasal cannula. At that time, he was placed on BiPAP and was given breathing treatments. He had actually did fairly well with his initial vital signs after BiPAP showing saturation 97% on 80% FiO2. Respirations had gone from 36 to 14. At that time, he was admitted to the Medical/Surgical Floor for further treatment of COVID pneumonitis. He did fairly well overnight, but due to his increasing need of oxygen demand and extensive history of oxygen usage and COVID, request for transfer was made to [facility]. He was accepted in transfer and prior to transfer, he was intubated. Condition at time of transfer/discharge serious but guarded. PAST MEDICAL HISTORY: 1. Hypertension. 2. Diabetes mellitus, type 2. 3. Gout. 4. Seasonal allergies. 5. Sleep apnea. 6. Benign prostatic hypertrophy. 7. O2 dependent without a formal diagnosis of chronic obstructive pulmonary disease. PAST SURGICAL HISTORY: 1. Right eye surgery. 2. Left total knee arthroplasty. OUTPATIENT MEDICATIONS: 1. Detrol 4 mg daily. 2. Flomax 0.4 mg daily. 3. Meloxicam 15 mg at bedtime. 4. Chlorthalidone 12.5 mg daily. 5. Carvedilol 3.125 mg b.i.d. 6. Eliquis 2.5 mg b.i.d. 7. Zyloprim 300 mg b.i.d. ALLERGIES: ZOLPIDEM, BANANAS. FAMILY HISTORY: Noncontributory to current admission. SOCIAL HISTORY: The patient lives in [place]. He does have a history of smoking cigarettes, but quit in his 70s. He denies any alcohol or illicit drug use. REVIEW OF SYSTEMS: CONSTITUTIONAL: Positive for general malaise. Denies any fevers, chills or unintentional weight loss. HEENT: Denies headaches, vision changes, sore throats, earaches. RESPIRATORY: As noted in history of present illness. CARDIOVASCULAR: Denies chest pain, palpitations or syncopal episodes. GASTROINTESTINAL: Denies nausea, vomiting, diarrhea, constipation or abdominal pain. GENITOURINARY: Denies dysuria, hematuria, polyuria. Positive for history of benign prostatic hypertrophy. MUSCULOSKELETAL: Denies joint swelling or arthralgias. SKIN: Denies lesions, rashes, moles or unexplained changes. NEUROLOGIC: Denies ataxia, seizures, paresthesias, syncopal episodes, migraines, headaches or any other focal deficits. HEMATOLOGIC: Denies unexplained bleeding, bruising or transfusion reactions, but he is on Eliquis. PHYSICAL EXAMINATION: VITAL SIGNS: At time of transfer, please refer to those notes for vital signs. Prior to intubation, temperature was 97.2, pulse 73, blood pressure 168/82, respirations 24 to 36, saturation 93% on BiPAP at 80% FiO2. GENERAL: After intubation, the patient is resting comfortably. Prior to intubation, he was in some mild distress due to ongoing respiratory distress. HEENT: Tympanic membranes clear bilaterally. Oropharynx is pink, moist with 23 at teeth and 7.[address] as well as NG tube RESPIRATORY: Lung sounds are fairly clear, just diminished towards the bases. CARDIOVASCULAR: Regular rate and rhythm without any appreciable murmurs, gallops, or rubs. ABDOMEN: Obese, but soft, nontender. Positive bowel sounds. RECTAL: Deferred. EXTREMITIES: There is no cyanosis, clubbing or edema. NEUROLOGIC: He was initially alert and oriented prior to intubation with no obvious neurologic deficits. He currently is on a Diprivan drip and seems to be resting comfortably and stable. SKIN: Warm, pink and dry. LABORATORY: White count at discharge was 5,200, hemoglobin 11.6, hematocrit 35.6, MCV 96.4, platelet count 165,000. Differential showed a left shift. Coagulation studies showed initially D-dimer 665 and at discharge/transfer was 599. Fibrinogen 782. Chemistries were showing normal electrolytes with creatinine 1.46. His initial lactic acid was 5.0 prior to admission. After admission and treatment and correction of hypoxia in the ER, his lactic acid repeated was 2.0. Magnesium and calcium were normal. Liver functions were normal. C-reactive protein was elevated at 34.9. BNP was elevated at 665. Urinalysis was pending. MICROBIOLOGY: No specimens were pending. RADIOLOGY: Chest x-ray post intubation showed ET tube in good position. Lungs mildly hypoaerated. Moderate diffuse alveolar and mild interstitial airspace infiltrates seen throughout the lungs, compatible with bilateral pneumonia. ADMISSION DIAGNOSIS: 1. COVID pneumonitis with developing pneumonia. 2. Respiratory failure due to hypoxia secondary to #1, requiring noninvasive ventilatory support. 3. Hypertension. 4. Type 2 diabetes mellitus. 5. Gout. 6. Seasonal allergies. 7. Sleep apnea. 8. Benign prostatic hypertrophy. DISCHARGE DIAGNOSIS: 1. Respiratory failure requiring intubation secondary to worsening pneumonia from COVID pneumonitis. 2. COVID pneumonitis with pneumonia and respiratory failure. 3. Hypertension. 4. Type 2 diabetes mellitus. 5. Gout. 6. Seasonal allergies. 7. Sleep apnea. 8. Benign prostatic hypertrophy. PLAN: Mr. Sam is going to be transferred. He initially was admitted to the Medical/Surgical Floor last night, but has not show any significant improvement and is requiring significant support with BiPAP at 80% FiO2. After further discussion with the patient and his deteriorating condition and taking to family, the best disposition at that point was transfer to a higher level of care for ICU and pending possible respiratory failure and required intubation. He was intubated. He has a 7.5 ET tube placed at 23 cm. He is currently on Diprivan. He got Versed, fentanyl, vecuronium and is resting comfortably. He seems to be fairly stable on current ventilator settings. Please see those notes for details. Given the fact that we do not have any ICU and vent management at [facility], transfer was secured through [facility], which is greatly appreciated. The patient is now going to be transferred to [facility] via ground ambulance due to weather conditions and no availability of helicopters to provide transportation. At time of transfer, the patient's condition is serious and prognosis is fairly poor, but he seems to be fairly stable at this point. I did talk with the family. They are in agreement with the plan of care and aware of need for transfer. Dr. Mccallum, supervising physician, was notified of transfer. Dr. Caleb Zamudio, ER physician, intubated and assisted with stabilizing the patient prior to transport. The patient will need followup with his primary care provider, Dr. Benoit at [facility]. He has been notified of the patient's transfer and condition. CRITICAL CARE TIME: 45 minutes, direct patient care spent following on history and physical exam, review of prior records, ordering and reviewing labs, ordering and reviewing imaging, ventilator management to prevent further respiratory failure and reassessment of the patient. #[id number] [facility]
[2020-10-05 11:13] VITALS: O2SAT 94
[2020-10-05] MEDS ORDERED: cefTRIAXone SODIUM 1 GM in SODIUM CHL 0.9% 50ML MIN-BAG+ 50 ML IVPB SCH (11:30)
[2020-10-05] MEDS ORDERED: ALBUTEROL SULFATE 2.5 MG/3 ML VIAL NEB SCH (12:00)
[2020-10-05] MEDS ORDERED: BUDESONIDE NEBS 0.5 MG/2 ML INH NEB SCH (20:00)
== END 2020-10-05 10:37 | disposition short-term general hospital (02) | DRG 208 ==
LOC: ER 17:55 → OBSVTOIN 21:08 → MS 21:08
PROVIDERS: ADMIT Nurse Practitioner Family; ATTEND Nurse Practitioner Family
PROC: 0BH17EZ Insertion of Endotracheal Airway into Trachea, Via Natural or Artificial Opening (ICD-10-PCS; principal; 2020-10-05)
PROC: 5A1935Z Respiratory Ventilation, Less than 24 Consecutive Hours (ICD-10-PCS; 2020-10-05)
DX: U07.1 COVID-19 (principal); J12.82 Pneumonia due to coronavirus disease 2019; J96.91 Respiratory failure, unspecified with hypoxia; Z99.81 Dependence on supplemental oxygen; I10 Essential (primary) hypertension; E11.9 Type 2 diabetes mellitus without complications; M10.9 Gout, unspecified; J30.2 Other seasonal allergic rhinitis; G47.30 Sleep apnea, unspecified; N40.0 Benign prostatic hyperplasia without lower urinary tract symptoms; E66.9 Obesity, unspecified; Z96.652 Presence of left artificial knee joint; Z79.1 Long term (current) use of non-steroidal anti-inflammatories (NSAID); Z79.01 Long term (current) use of anticoagulants; Z79.899 Other long term (current) drug therapy; Z88.8 Allergy status to other drugs, medicaments and biological substances; Z87.891 Personal history of nicotine dependence; Z68.36 Body mass index [BMI] 36.0-36.9, adult